=== PATIENT | male | born 1960 | race Two or more races ===

== ENCOUNTER 2017-04-15 14:07 | Emergency (ER) | payer MEDICAID, MEDICARE ==
[~2017-04-15] VITALS: Ht 172.7 cm; Wt 104.3 kg
[~2017-04-15 14:07] MED LIST: ADVAIR 100-501 EACH INH; ALBUTEROL SULF8.5 GM INH; ANTI DEPRESSION ORAL; ASPIRIN EC81 MG ORAL; ATENOLOL25 MG ORAL; ATIVAN0.5 MG ORAL; AZITHROMYCIN250 MG ORAL; IBUPROFEN600 MG ORAL; NAPROXEN500 M2 ORAL; NITROGLYCERIN0.4 MG SL; NORCO 5-325 TA1 EACH ORAL; NORCO 5-325 TA1 EACH PO; PREDNISONE20 MG ORAL; TIVICAY50 MG ORAL; TRUVADA 200 MG1 EAC1 ORAL; ZOCOR20 MG ORAL
[2017-04-15] MEDS ORDERED: PRAVASTATIN SOD20 M1 ORAL (14:27)
--- NOTE | 2017-04-15 14:37 | Emergency Room Report ---
History of Present Illness General Chief Complaint: Upper Respiratory Illness Source: Patient Present Illness HPI 56 yo male presents to ER complaining of flu-like symptoms and dry cough x1 day. Patient complains of generalized body aches during this time. Patient also complains of congestion. States he took Mucinex for relief of symptoms. Patient denies history of sick contacts. Patient reports hx of asthma treated at home as needed for Denies wheezing or use of medication. Patient reports hx of HIV. States was seen by doctor 1 month ago for labs; reports normal labs, no detectable viral load. Patient states he quit smoking 5 days ago. Patient denies chest pain, SOB, diarrhea, rash. Allergies: Coded Allergies: Crab (Verified Allergy, Unknown, 04/15/17) Uncoded Allergies: SEAFOOD (Allergy, Unknown, 04/15/17) Patient History Past Medical History: see triage record, asthma, HIV Reviewed Nursing Documentation: PMH: Agreed, PSxH: Agreed Nursing Documentation-PMH Hx Cardiac Problems: Yes - HIV(+), Heart attack in 2005 Hx Hypertension: Yes Hx Pacemaker: No Hx Asthma: Yes Hx COPD: No Hx Diabetes: No Hx Cancer: No Hx Gastrointestinal Problems: No Hx Dialysis: No Hx Neurological Problems: No - Right Carpal Tunnel Sx Hx Cerebrovascular Accident: No Hx Seizures: No Review of Systems All Other Systems: negative except mentioned in HPI Physical Exam Vital Signs Date Time Temp Pulse Resp B/P (MAP) Pulse Ox O2 Delivery O2 Flow Rate FiO2 04/15/17 14:22 98.6 115 22 157/94 94 Room Air Sp02 EP Interpretation: reviewed, normal General Appearance: no apparent distress, alert, GCS 15, non-toxic Head: normocephalic, atraumatic Eyes: bilateral eye normal inspection, bilateral eye PERRL ENT: hearing grossly normal, normal pharynx, no angioedema, normal voice, TMs + canals normal, uvula midline, pharyngeal erythema Neck: full range of motion, supple/symm/no masses Respiratory: chest non-tender, lungs clear, normal breath sounds, no accessory muscle use, no wheezing, speaking full sentences Cardiovascular #1: regular rate, rhythm Cardiovascular #2: 2+ carotid (R), 2+ carotid (L) Gastrointestinal: normal bowel sounds, non tender, soft, non-distended, no guarding, no rebound Musculoskeletal: back normal, digits/nails normal, gait/station normal, normal range of motion, non-tender Neurologic: alert, oriented x3, responsive, motor strength/tone normal, sensory intact, speech normal Skin: normal color, no rash, warm/dry, well hydrated Lymphatic: no adenopathy Medical Decision Making PA Attestation Dr. Mcintyre is my supervising Physician whom patient management has been discussed with. Diagnostic Impression: Primary Impression: Upper respiratory infection ER Course Pt presents to ED c/o flu-like symptoms. DDX considered but are not limited to influenza, viral URI, strep throat, rhinitis, sinusitis. VITAL SIGNS are WNL, patient is afebrile. ORDERS: none required at this time, diagnosis is clinical ED INTERVENTIONS: none required at this time DISCHARGE: At this time pt is stable for d/c to home. Patient is resting comfortably, in no acute distress, nontoxic appearing. -Rx given for Motrin/Ibuprofen for fever/pain. -Rx given for Promethazine-DM syrup for cough sx. -Rx given for Tamiflu for influenza. Patient to take medications as instructed Will provide with patient care instructions and any necessary prescriptions. Care plan and follow-up instructions provided. Patient instructed to follow-up with primary care provider in 3 - 5 days. Patient questions asked and answered. ER precautions given. Patient instructed to return to ER immediately for any new or worsening of symptoms including but not limited to increasing SOB, persistent fever. Last Vital Signs Date Time Temp Pulse Resp B/P (MAP) Pulse Ox O2 Delivery O2 Flow Rate FiO2 04/15/17 14:22 98.6 115 22 157/94 94 Room Air Disposition: HOME, SELF-CARE Condition: Stable Scripts Ibuprofen* (MOTRIN*) 600 Mg Tablet 600 MG ORAL Q8H Y for For Pain, #30 TAB 0 Refills Prov: Art Urban.A. 04/15/17 Oseltamivir Phosphate (Tamiflu) 75 Mg Capsule 75 MG ORAL TWICE A DAY for 5 Days, #10 CAP Prov: Art Urban P.A. 04/15/17 D-Methorphan Hb/Prometh Hcl* (PROMETHAZINE-DM SYRUP*) 118 Ml Syrup 5 ML ORAL Q6H Y for For Cough for 7 Days, #118 ML 0 Refills Prov: Art Urban.A. 04/15/17 Patient Instructions: Upper Respiratory Infection, Adult Additional Instructions: Followup with primary care provider in 3 -5 days. Take medications as directed. Continue with OTC medications as needed for symptom relief. Patient questions asked and answered. ER precautions given, patient instructed to return to ER immediately for any new or worsening of symptoms fever, chest pain, SOB. Art Urban Apr 15, 2017 14:37
[2017-04-15] MEDS ORDERED: PROMETHAZINE-D118 ML ORAL (14:48)
[2017-04-15] MEDS ORDERED: TAMIFLU75 MG ORAL (14:48)
[2017-04-15] MEDS ORDERED: IBUPROFEN600 MG ORAL (14:48)
[2017-04-15 14:51] VITALS: BP 160/93
== END 2017-04-15 16:17 | disposition home or self-care (01) ==
LOC: EMR 15:00
DX: J06.9 Acute upper respiratory infection, unspecified (principal); I10 Essential (primary) hypertension; J45.909 Unspecified asthma, uncomplicated; I25.2 Old myocardial infarction; Z91.013 Allergy to seafood
CPT/HCPCS: 99284

== ENCOUNTER 2019-06-15 13:02 | Inpatient (IN) | payer MEDICARE, MEDICAID ==
[~2019-06-15] VITALS: Ht 172.7 cm; Wt 81.6 kg
[~2019-06-15 13:02] MED LIST changes: +PRAVASTATIN SOD20 M1 ORAL; +PROMETHAZINE-D118 ML ORAL; +TAMIFLU75 MG ORAL
[2019-06-15 13:40] VITALS: BP 140/76
[2019-06-15 13:55] LABS: ANION GAP 9 mmol/L (5-15); BLOOD UREA NITROGEN 18 mg/dL (7-18); CALCIUM 8.8 MG/DL (8.5-10.1); CARBON DIOXIDE 28 MMOL/L (21-32); CHLORIDE 96 MMOL/L (98-107); CREATININE 1.3 MG/DL (0.55-1.30); POTASSIUM 3.7 MMOL/L (3.5-5.1); SODIUM 133 MMOL/L (136-145)
[2019-06-15 13:57] LABS: HEMATOCRIT 45.8 % (42.0-52.0); MEAN CORPUSCULAR VOLUME 88 FL (80-99); PLATELET COUNT 345 K/UL (150-450); RED BLOOD COUNT 5.21 M/UL (4.70-6.10); RED CELL DISTRIBUTION WIDTH 11.3 % (11.6-14.8); WHITE BLOOD COUNT 18.5 K/UL (4.8-10.8)
[2019-06-15 13:59] LABS: ALANINE AMINOTRANSFERASE 35 U/L (12-78); ALBUMIN 3.4 G/DL (3.4-5.0); ALBUMIN/GLOBULIN RATIO 0.8 (1.0-2.7); ALKALINE PHOSPHATASE 86 U/L (46-116); ASPARTATE AMINO TRANSFERASE 19 U/L (15-37)
[2019-06-15 14:04] LABS: BASOPHILS % (AUTO) 0.6 % (0.0-2.0); EOSINOPHILS % (AUTO) 0.2 % (0.0-3.0); LYMPHOCYTES % (AUTO) 12.8 % (20.0-45.0); MONOCYTES % (AUTO) 10.6 % (1.0-10.0); NEUTROPHILS % (AUTO) 75.9 % (45.0-75.0)
[2019-06-15 14:20] LABS: APPEARANCE,URINE CLOUDY; BILIRUBIN, URINE NEGATIVE (NEGATIVE); GLUCOSE, URINE (UA) NEGATIVE (NEGATIVE); KETONES,URINE 1+ (NEGATIVE); LEUKOCYTE ESTERASE ,URINE 3+ (NEGATIVE); NITRITE,URINE POSITIVE (NEGATIVE); PH,URINE 6 (4.5-8.0); PROTEIN,URINE 2+ (NEGATIVE); UROBILINOGEN,URINE 1 MG/DL (0.0-1.0)
[2019-06-15 14:32] LABS: COLOR,URINE YELLOW
[2019-06-15] MEDS ORDERED: Piperacillin/Tazobactam 3.375 GM in NS 110 ML IVPB ONE (14:45)
[2019-06-15] MEDS ORDERED: Omnipaque-300 100ml vial INJ PRN (15:15)
--- NOTE | 2019-06-15 16:00 | Diagnostic Imaging Report ---
Clinical Indication: Flank pain and inguinal pain, left testicular pain radiating to the back x1 week, low-grade fever Technique: No oral contrast utilized, per emergency room physician request IV administration nonionic contrast. Venous phase spiral acquisition obtained through the abdomen and pelvis. Multiplanar reconstructions were generated. Total dose length product 509 mGycm. CTDIvol(s) 8 mGy. Dose reduction achieved using automated exposure control Comparison: none Findings: The left kidney demonstrates heterogeneous opacification and striated nephrogram, particularly in the upper pole. There is slight stranding of the left perinephric fat and slight enlargement of the left kidney. There is a very questionable tiny punctate interpolar region calculus. The right kidney demonstrates a 12 mm upper pole cyst. The left kidney demonstrates a lower pole interpolar region cyst. There is no evidence of colonic diverticulosis or diverticulitis. There are a few somewhat prominent gas-filled small bowel loops in the left upper quadrant as well as some fluid-filled small bowel loops more distally. No sherrie wall thickening. No free or loculated intraperitoneal gas or fluid is evident. No evidence of inguinal hernia. The distal esophagus, stomach, duodenum are unremarkable. The liver demonstrates a few small scattered subcentimeter low-attenuation lesions which are too small to characterize. A a few parenchymal calcifications are seen in segment 7. The gallbladder, bile ducts and pancreas are unremarkable. The spleen is enlarged, measuring 16.7 cm long axis dimension. The adrenals are unremarkable. No pelvic mass or adenopathy. No retroperitoneal or mesenteric mass or adenopathy. The included lung bases are demonstrate a 4 mm nodule in the posterior medial left lung base, image 5 of series 8. The bones are unremarkable. Impression: Abnormal heterogeneous and somewhat striated left renal nephrogram, particularly in the upper pole with slight perinephric fat stranding. Findings are suspicious for nephritis Mild prominent gas-filled left upper quadrant small bowel bowel loops and fluid-filled mid small bowel loops, may indicate mild enteritis changes. Correlate with clinical findings 4 mm nodule at the left lung base. Recommend 12 month follow-up CT scan if there are significant risk factors for lung carcinoma, no risk factors. Splenomegaly Very questionable nonobstructive left intrarenal calculus Physical findings as noted, including bilateral renal cysts, subcentimeter liver lesions, evidence of old granulomatous disease within the liver This agrees with the preliminary interpretation provided overnight by [facility]. The CT scanner at [facility] is accredited by the [employer] and the scans are performed using protocols designed to limit radiation exposure to as low as reasonably achievable to attain images of sufficient resolution adequate for diagnostic evaluation.
[2019-06-15] MEDS ORDERED: Acyclovir 500 MG in D5W 110 ML IV ONE (16:30)
--- NOTE | 2019-06-15 16:53 | Diagnostic Imaging Report ---
Indications: Left testicular pain Technique: Grayscale and duplex images of the scrotum Comparison: Findings:The right testicle measures 3.9cm in length. It demonstrates normal echogenicity. Normal Doppler flow. A few small calcifications are seen within the right testicle and epididymis. A small cyst is seen in the right epididymal head. A 2 mm echogenic nodule is also seen in the right epididymal head. The epididymal tail is prominent. There is minimal hydrocele. The left testicle measures 3.7 cm in length. It demonstrates normal echogenicity and normal Doppler flow. The epididymal tail there is prominent. It contains a 5 mm cyst. A 6 mm cyst is seen in the epididymal head. A few small calcifications are seen in the testicle and epididymis. There is a small hydrocele.. Impression: No acute abnormality Incidental findings as noted, including bilateral epididymal and testicular parenchymal calcifications, bilateral epididymal cysts, prominent epididymal tails, and small bilateral hydroceles This agrees with the preliminary interpretation provided overnight by [facility] teleradiology service.
--- NOTE | 2019-06-15 17:05 | Emergency Room Report ---
History of Present Illness General Chief Complaint: Male Urogenital Problems Source: Medical Record Present Illness HPI 59-year-old male with history of CHF currently controlled here complaining of 1 week of left-sided testicular pain with radiation to left lower abdomen as well as left flank. Rates the pain 7 out of 10 at this time. Reports that at home he was taking ibuprofen with minimal relief. Denies any painful urination or frequency. Reports that he also has a history of BPH and takes medication. Denies any diffuse abdominal pain, nausea vomiting diarrhea. Denies any fever and chills however appears to be febrile upon arrival. Denies chest pain shortness of breath. Denies cough and congestion recent travel. Also complains of a rash on left side that is spreading to the left flank that started around the same time as a testicular pain. Reports that the rash had a tingling sensation at first and pruritic however now complains of pain at the site of rash. Denies any testicular swelling or penile discharge. Allergies: Coded Allergies: Crab (Verified Allergy, Unknown, 04/15/17) Uncoded Allergies: SEAFOOD (Allergy, Unknown, 04/15/17) COVID-19 Screening Contact w/high risk pt: No Recent Travel to affected area: No Experienced COVID-19 symptoms?: Yes COVID-19 symptoms experienced: Fever (T>100.4F or >38C) Patient History Past Medical History: see triage record Past Surgical History: none Pertinent Family History: none Immunizations: UTD Reviewed Nursing Documentation: PMH: Agreed; PSxH: Agreed Nursing Documentation-PMH Past Medical History: No History, Except For Hx Cardiac Problems: Yes - HIV(+), Heart attack in 2006 Hx Hypertension: Yes Hx Pacemaker: No Hx Asthma: Yes Hx COPD: No Hx Diabetes: No Hx Cancer: No Hx Gastrointestinal Problems: No Hx Dialysis: No Hx Neurological Problems: No - Right Carpal Tunnel Sx Hx Cerebrovascular Accident: No Hx Seizures: No Review of Systems All Other Systems: negative except mentioned in HPI Physical Exam Vital Signs Date Time Temp Pulse Resp B/P (MAP) Pulse Ox O2 Delivery O2 Flow Rate FiO2 06/15/19 13:25 100.8 76 18 140/76 (97) 99 Room Air Sp02 EP Interpretation: reviewed, normal General Appearance: no apparent distress, alert, GCS 15, non-toxic Head: normocephalic, atraumatic Eyes: bilateral eye normal inspection, bilateral eye PERRL ENT: hearing grossly normal, normal pharynx, no angioedema, normal voice Neck: full range of motion, supple/symm/no masses Respiratory: chest non-tender, lungs clear, normal breath sounds, no rhonchi, no wheezing, speaking full sentences Cardiovascular #1: regular rate, rhythm, no edema, no murmur Gastrointestinal: normal bowel sounds, non tender, soft, non-distended, no guarding, no rebound Genitourinary: no CVA tenderness, penis normal, scrotum normal Musculoskeletal: back normal, normal range of motion, gait/station normal, non- tender Neurologic: alert, motor strength/tone normal, oriented x3, sensory intact, responsive, speech normal Psychiatric: judgement/insight normal, memory normal, mood/affect normal, no suicidal/homicidal ideation Skin: rash - Vesicular rash on erythematous base on left thigh spreading to the left flank Lymphatic: no adenopathy Medical Decision Making PA Attestation All diagnoses and treatment plans were reviewed and discussed with my supervising physician Dr. Calle Diagnostic Impression: Primary Impression: Pyelonephritis Additional Impressions: Renal stone Shingles Pulmonary nodule Epididymal cyst ER Course 59-year-old male with history of CHF currently controlled here complaining of 1 week of left-sided testicular pain with radiation to left lower abdomen as well as left flank. Rates the pain 7 out of 10 at this time. Reports that at home he was taking ibuprofen with minimal relief. Denies any painful urination or frequency. Reports that he also has a history of BPH and takes medication. Denies any diffuse abdominal pain, nausea vomiting diarrhea. Denies any fever and chills however appears to be febrile upon arrival. Denies chest pain shortness of breath. Denies cough and congestion recent travel. Also complains of a rash on left side that is spreading to the left flank that started around the same time as a testicular pain. Reports that the rash had a tingling sensation at first and pruritic however now complains of pain at the site of rash. Denies any testicular swelling or penile discharge. Ddx considered but are not limited to: UTI, pyelonephritis, epididymitis, varicocele, testicular torsion, scrotal abscess, renal stone Vital signs: are WNL, pt. is febrile H&PE are most consistent with: Pyelonephritis, renal stone, shingles ORDERS: UA, urine cx, CBC, CMP, PT and PTT, lactic acid, troponin, BNP, testicular ultrasound, CT abdomen pelvis with contrast ED INTERVENTIONS: NS bolus, Zosyn, Tylenol, Acyclovir Patient was admitted with diagnosis of pyelonephritis and renal stone to Dr. Lenz under supervision of Dr.: Calle pt stable at time of admission EKG Diagnostic Results Rate: normal Rhythm: NSR ST Segments: no acute changes Other Impression No acute ST changes CT/MRI/US Diagnostic Results CT/MRI/US Diagnostic Results #1: Imaging Test Ordered: Scrotal ultrasound Impression No evidence of testicular torsion. Patent Doppler flow to both testicles. Bilateral 6 mm epididymal head cysts. Incidental note of bilateral epididymal calcifications. Incidental note of bilateral testicular microcalcifications. Tiny bilateral hydroceles. CT/MRI/US Diagnostic Results #2: Imaging Test Ordered: CT abdomen pelvis with contrast Impression Findings suggesting mild enterocolitis and/or diarrheal disease, with scattered luminal air-fluid levels throughout small bowel and colonic loops without focal wall thickening. Punctate 2 mm nonobstructive stone in the mid left kidney. No hydronephrosis or hydroureter. Subtle left perinephric and periureteral stranding, nonspecific. Recommend correlation with urinalysis to exclude UTI. Bilateral simple-appearing renal cortical cysts, largest measuring 1.6 cm in the right upper renal pole. Splenomegaly, with a craniocaudal diameter of 16 cm. The gallbladder and appendix appear normal. Liver and pancreas appear unremarkable. Stomach and GE junction appear unremarkable. 4 mm noncalcified nodule in the medial left lung base (series 8 image 5). Recommend follow-up according to Fleischner Society guidelines. The lung bases are otherwise clear. Last Vital Signs Date Time Temp Pulse Resp B/P (MAP) Pulse Ox O2 Delivery O2 Flow Rate FiO2 06/15/19 14:27 99.8 06/15/19 13:40 18 140/76 99 Room Air 06/15/19 13:25 76 Disposition: ADMITTED INPATIENT Condition: Stable Referrals: Pedro Chahal MD (PCP) Elijah Mendez Jun 15, 2019 17:05
[2019-06-15 17:36] VITALS: BP 126/78
[2019-06-15] MEDS ORDERED: BIKTARVY 50-201 EACH PO (18:56)
[2019-06-15 20:44] VITALS: BP 145/86
[2019-06-16] VITALS: BP 144/87
[2019-06-16] MEDS: cefTRIAXone 1 GM in D5W 55 ML IVPB SCH ×2 (02:35→20:40)
[2019-06-16 04:00] VITALS: BP 150/89
[2019-06-16 06:38] LABS: BASOPHILS % (AUTO) 0.5 % (0.0-2.0); EOSINOPHILS % (AUTO) 0.6 % (0.0-3.0); HEMATOCRIT 44.9 % (42.0-52.0); HEMOGLOBIN 15.8 G/DL (14.2-18.0); LYMPHOCYTES % (AUTO) 10.8 % (20.0-45.0); MEAN CORPUSCULAR VOLUME 88 FL (80-99); MONOCYTES % (AUTO) 10.6 % (1.0-10.0); NEUTROPHILS % (AUTO) 77.5 % (45.0-75.0); PLATELET COUNT 312 K/UL (150-450); RED BLOOD COUNT 5.11 M/UL (4.70-6.10); RED CELL DISTRIBUTION WIDTH 10.9 % (11.6-14.8); WHITE BLOOD COUNT 15.6 K/UL (4.8-10.8)
[2019-06-16] MEDS ORDERED: Nitroglycerin Subl 0.4mg tab SL PRN (06:45)
[2019-06-16] MEDS ORDERED: Albuterol 90mcg Inhaler 8gm INH SCH (06:45)
[2019-06-16] MEDS ORDERED: Albuterol ud Inhalation HHN PRN (07:15)
[2019-06-16 07:35] LABS: ALANINE AMINOTRANSFERASE 29 U/L (12-78); ALBUMIN 3.1 G/DL (3.4-5.0); ALBUMIN/GLOBULIN RATIO 0.7 (1.0-2.7); ALKALINE PHOSPHATASE 88 U/L (46-116); ANION GAP 10 mmol/L (5-15); ASPARTATE AMINO TRANSFERASE 20 U/L (15-37); BILIRUBIN,TOTAL 1.1 MG/DL (0.2-1.0); BLOOD UREA NITROGEN 19 mg/dL (7-18); CALCIUM 8.4 MG/DL (8.5-10.1); CARBON DIOXIDE 27 MMOL/L (21-32); CHLORIDE 97 MMOL/L (98-107); CREATININE 1.1 MG/DL (0.55-1.30); POTASSIUM 3.5 MMOL/L (3.5-5.1); SODIUM 133 MMOL/L (136-145)
[2019-06-16 07:36] LABS: BILIRUBIN,DIRECT 0.6 MG/DL (0.0-0.3)
[2019-06-16 08:00] VITALS: BP 133/91
[2019-06-16] MEDS: Aspirin EC 81mg tab ORAL SCH (09:05)
[2019-06-16] MEDS: LORazepam 0.5mg tab ORAL SCH ×2 (09:05→17:34)
[2019-06-16] MEDS: Atenolol 25mg tab ORAL SCH (09:05)
--- NOTE | 2019-06-16 09:35 | Consultation ---
History of Present Illness General Chief Complaint: Male Urogenital Problems Present Illness Allergies: Coded Allergies: Crab (Verified Allergy, Unknown, 04/15/17) Uncoded Allergies: SEAFOOD (Allergy, Unknown, 04/15/17) Medication History Scheduled Albuterol Sulfate* (Albuterol Sulfate Mdi*), 2 PUFF INH Q3H, (Reported) Aspirin Ec* (Aspirin Ec*), 81 MG ORAL DAILY, (Reported) Atenolol* (Tenormin*), 25 MG ORAL DAILY, (Reported) Azithromycin* (Zithromax*), 250 MG ORAL DAILY Bictegrav/Emtricit/Tenofov Ala (Biktarvy 50-200-25 mg Tablet), 1 EACH PO DAILY, (Reported) Fluticasone/Salmeterol (Advair 100-50 Diskus), 1 PUFF INH EVERY 12 HOURS, ( Reported) Lorazepam* (Ativan*), 0.5 MG ORAL BID, (Reported) Naproxen* (Naproxen*), 500 MG ORAL TWICE A DAY, (Reported) Oseltamivir Phosphate (Tamiflu), 75 MG ORAL TWICE A DAY Pravastatin Sod* (Pravastatin Sod*), 20 MG ORAL BEDTIME, (Reported) Prednisone* (Prednisone*), 60 MG ORAL DAILY Simvastatin (Zocor), 20 MG ORAL BEDTIME, (Reported) [Anti Depression], 20 ORAL DAILY, (Reported) Scheduled PRN D-Methorphan Hb/Prometh Hcl* (Promethazine-Dm Syrup*), 5 ML ORAL Q6H PRN for For Cough Miscellaneous Medications Nitroglycerin (Nitroglycerin), 0.4 MG SL, (Reported) Discontinued Medications Dolutegravir Sodium (Tivicay), 50 MG ORAL DAILY, (Reported) Discontinued Reason: Pt stopped taking med Emtricitabine/Tenofovir 200-300MG* (Truvada 200-300MG*), 1 TAB ORAL DAILY, ( Reported) Discontinued Reason: Pt stopped taking med Hydrocodone Bit/Acetaminophen 5-325* ([place] 5-325*), 1 TAB ORAL Q6H PRN for For Pain Discontinued Reason: Pt stopped taking med Ibuprofen (Motrin), 600 MG ORAL Q8H PRN for For Pain Discontinued Reason: Pt stopped taking med Ibuprofen (Motrin), 600 MG ORAL Q8H PRN for For Pain Discontinued Reason: Pt stopped taking med Patient History Healthcare decision maker N Resuscitation status Full Code Advanced Directive on File No Physical Exam Last 24 Hour Vital Signs Date Time Temp Pulse Resp B/P (MAP) Pulse Ox O2 Delivery O2 Flow Rate FiO2 06/16/19 09:05 81 133/91 06/16/19 08:00 98.4 81 20 133/91 (105) 100 06/16/19 04:00 99.0 85 150/89 (109) 06/16/19 00:00 100.4 88 144/87 (106) 06/15/19 22:53 100.4 06/15/19 22:29 Room Air 06/15/19 20:44 102.2 94 18 145/86 (105) 96 06/15/19 19:00 99.1 81 19 126/78 95 Room Air 06/15/19 17:36 99.1 81 19 126/78 95 Room Air 06/15/19 14:27 99.8 06/15/19 13:40 100.8 18 140/76 99 Room Air 06/15/19 13:25 100.8 76 18 140/76 (97) 99 Room Air Intake and Output 06/15/19 06/16/19 19:00 07:00 Intake Total 1600 ml Balance 1600 ml Intake Oral 1600 ml # Voids 1 2 Laboratory Tests Test 06/15/19 13:30 06/15/19 14:00 06/16/19 05:25 White Blood Count 18.5 K/UL (4.8-10.8) H 15.6 K/UL (4.8-10.8) H Red Blood Count 5.21 M/UL (4.70-6.10) 5.11 M/UL (4.70-6.10) Hemoglobin 16.0 G/DL (14.2-18.0) 15.8 G/DL (14.2-18.0) Hematocrit 45.8 % (42.0-52.0) 44.9 % (42.0-52.0) Mean Corpuscular Volume 88 FL (80-99) 88 FL (80-99) Mean Corpuscular Hemoglobin 30.7 PG (27.0-31.0) 30.9 PG (27.0-31.0) Mean Corpuscular Hemoglobin Concent 34.9 G/DL (32.0-36.0) 35.2 G/DL (32.0-36.0) Red Cell Distribution Width 11.3 % (11.6-14.8) L 10.9 % (11.6-14.8) L Platelet Count 345 K/UL (150-450) 312 K/UL (150-450) Mean Platelet Volume 6.1 FL (6.5-10.1) L 6.2 FL (6.5-10.1) L Neutrophils (%) (Auto) 75.9 % (45.0-75.0) H 77.5 % (45.0-75.0) H Lymphocytes (%) (Auto) 12.8 % (20.0-45.0) L 10.8 % (20.0-45.0) L Monocytes (%) (Auto) 10.6 % (1.0-10.0) H 10.6 % (1.0-10.0) H Eosinophils (%) (Auto) 0.2 % (0.0-3.0) 0.6 % (0.0-3.0) Basophils (%) (Auto) 0.6 % (0.0-2.0) 0.5 % (0.0-2.0) Prothrombin Time 10.7 SEC (9.30-11.50) Prothromb Time International Ratio 1.0 (0.9-1.1) Activated Partial Thromboplast Time 32 SEC (23-33) Sodium Level 133 MMOL/L (136-145) L 133 MMOL/L (136-145) L Potassium Level 3.7 MMOL/L (3.5-5.1) 3.5 MMOL/L (3.5-5.1) Chloride Level 96 MMOL/L (98-107) L 97 MMOL/L (98-107) L Carbon Dioxide Level 28 MMOL/L (21-32) 27 MMOL/L (21-32) Anion Gap 9 mmol/L (5-15) 10 mmol/L (5-15) Blood Urea Nitrogen 18 mg/dL (7-18) 19 mg/dL (7-18) H Creatinine 1.3 MG/DL (0.55-1.30) 1.1 MG/DL (0.55-1.30) Estimat Glomerular Filtration Rate 56.7 mL/min (>60) > 60 mL/min (>60) Glucose Level 92 MG/DL (74-106) 94 MG/DL (74-106) Lactic Acid Level 1.00 mmol/L (0.4-2.0) Calcium Level 8.8 MG/DL (8.5-10.1) 8.4 MG/DL (8.5-10.1) L Total Bilirubin 1.0 MG/DL (0.2-1.0) 1.1 MG/DL (0.2-1.0) H Aspartate Amino Transf (AST/SGOT) 19 U/L (15-37) 20 U/L (15-37) Alanine Aminotransferase (ALT/SGPT) 35 U/L (12-78) 29 U/L (12-78) Alkaline Phosphatase 86 U/L (46-116) 88 U/L (46-116) Troponin I 0.000 ng/mL (0.000-0.056) Pro-B-Type Natriuretic Peptide 179 pg/mL (0-125) H Total Protein 7.7 G/DL (6.4-8.2) 7.3 G/DL (6.4-8.2) Albumin 3.4 G/DL (3.4-5.0) 3.1 G/DL (3.4-5.0) L Globulin 4.3 g/dL 4.2 g/dL Albumin/Globulin Ratio 0.8 (1.0-2.7) L 0.7 (1.0-2.7) L Urine Color Yellow Urine Appearance Cloudy Urine pH 6 (4.5-8.0) Urine Specific [place] 1.010 (1.005-1.035) Urine Protein 2+ (NEGATIVE) H Urine Glucose (UA) Negative (NEGATIVE) Urine Ketones 1+ (NEGATIVE) H Urine Blood 5+ (NEGATIVE) H Urine Nitrite Positive (NEGATIVE) H Urine Bilirubin Negative (NEGATIVE) Urine Urobilinogen 1 MG/DL (0.0-1.0) H Urine Leukocyte Esterase 3+ (NEGATIVE) H Urine RBC Tntc /HPF (0 - 0) H Urine WBC Tntc /HPF (0 - 0) H Urine Squamous Epithelial Cells None /LPF (NONE/OCC) Urine Bacteria Many /HPF (NONE) H Direct Bilirubin 0.6 MG/DL (0.0-0.3) H Microbiology Date/Time Source Procedure Growth Status 06/15/19 14:00 Urine,Catheterized Urine Culture - Preliminary Gram Negative Bacillus 1 Resulted Height (Feet): 5 Height (Inches): 8.00 Weight (Pounds): 180 Medications Current Medications Medications (Trade) Dose Ordered Sig/Jaelyn Route PRN Reason Start Time Stop Time Status Last Admin Dose Admin Acetaminophen (Tylenol) 650 mg Q4H PRN ORAL Mild Pain (Pain Scale 1-3) 06/15/19 21:45 07/15/19 21:44 06/16/19 06:34 Albuterol Sulfate (Proventil) 2.5 mg Q3H PRN HHN sob 06/16/19 07:15 06/21/19 07:14 Aspirin (Ecotrin) 81 mg DAILY ORAL 06/16/19 09:00 07/31/19 08:59 06/16/19 09:05 Atenolol (Tenormin) 25 mg DAILY ORAL 06/16/19 09:00 07/16/19 08:59 06/16/19 09:05 Ceftriaxone Sodium 1 gm/ Dextrose 55 ml @ 110 mls/hr Q24H IVPB 06/15/19 21:15 06/22/19 21:14 06/16/19 02:35 Iohexol (OMNIPAQUE-300 100ml) 100 ml NOW PRN INJ Radiology Procedure 06/15/19 15:15 06/17/19 15:04 Lorazepam (Ativan) 0.5 mg BID ORAL 06/16/19 09:00 06/23/19 08:59 06/16/19 09:05 Nitroglycerin (Ntg) 0.4 mg PRN PRN SL CHEST PAIN 06/16/19 06:45 07/16/19 06:44 Ondansetron HCl (Zofran) 4 mg Q6H PRN IVP Nausea & Vomiting 06/15/19 21:45 07/15/19 21:44 Pravastatin Sodium (Pravachol) 20 mg BEDTIME ORAL 06/16/19 21:00 07/16/19 20:59 Salmeterol Xinafoate/ Fluticasone (Advair 100/50 Diskus) 1 puffs EVERY 12 HOURS INH 06/16/19 09:00 09/14/19 08:59 Assessment/Plan Assessment/Plan: Hematology Consultation REQ : Timo Lenz C:Leukocytosis DOS: 06/16/2019 ID 59-year-old male with history of CHF currently controlled here complaining of 1 week of left-sided testicular pain with radiation to left lower abdomen as well as left flank. Rates the pain 7 out of 10 at this time. Reports that at home he was taking ibuprofen with minimal relief. Denies any painful urination or frequency. Reports that he also has a history of BPH and takes medication. Denies any diffuse abdominal pain, nausea vomiting diarrhea. Denies any fever and chills however appears to be febrile upon arrival. Denies chest pain shortness of breath. Denies cough and congestion recent travel. Also complains of a rash on left side that is spreading to the left flank that started around the same time as a testicular pain. Reports that the rash had a tingling sensation at first and pruritic however now complains of pain at the site of rash. Denies any testicular swelling or penile discharge. He was noted to have a elevated wbc and currently at 18->15, heme was consulted for further evaluation, id consulted as well. Allergies: Crab (Verified Allergy, Unknown, 04/15/17) SEAFOOD (Allergy, Unknown, 04/15/17) COVID-19 Screening Contact w/high risk pt: No Recent Travel to affected area: No Experienced COVID-19 symptoms?: Yes Patient History Past Medical History: see triage record Past Surgical History: none Pertinent Family History: none Immunizations: UTD Reviewed Nursing Documentation: PMH: Agreed; PSxH: Agreed Nursing Documentation-PMH Past Medical History: No History, Except For Hx Cardiac Problems: Yes - HIV(+), Heart attack in 2006 Hx Hypertension: Yes Hx Pacemaker: No Hx Asthma: Yes Hx COPD: No Hx Diabetes: No Hx Cancer: No Hx Gastrointestinal Problems: No Hx Dialysis: No Hx Neurological Problems: No - Right Carpal Tunnel Sx Hx Cerebrovascular Accident: No Hx Seizures: No Social hx: single, no kids, used t work in security, +++tobacco use, meth use in the past, but not at this time, no etoh/alcohol use ROS: Constitutional: No fever, no chills, no night sweats, no fatigue Skin: No rashes, lumps, itchiness, dryness HEENT: No LAURENT, ear ache, visual changes, double vision, nosebleeds Breasts: No lumps, pain, discharge Pulmonary: No cough, sputum, shortness of breath, coughing up blood Cardiovascular: No chest pain, tightness, palpitations, syncope, PND GI: No nausea, vomiting, diarrhea, melena, hematochezia, change in appetite, : No dysuria, frequency, urgency, urinary incontinence, foamy urine Musculoskeletal: No joint swelling or muscle pain, trauma, back pain Neurologic: No dizziness, fainting, seizures, changes in smell or taste Psychiatric: No nervousness, stress, or depression, anxiety, hallucinations Endocrine: No weight change, heat or cold intolerance, tremor, insomnia Physical Exam: Vitals: reviewed General: NAD HEENT: nc, at Neck: supple Chest: clear breath sounds bilaterally Cardiovascular: RRR, no s3, s4 Abdomen: soft, nontender, nd Extremities: no cce, normal range of motion Neuro: alert and oriented Skin: rash - Vesicular rash on erythematous base on left thigh spreading to the left flank Labs: noted Imaging: reviewed Assessment and Recs # Leukocytosis/elevated white blood cell count, unspecified likely related to underlying stress reaction, smoking v more likely infection, is due to pyelonephroitis/hiv --> have reviewed peripheral smear and bandemia/neutrophilia noted --> continue antibiotics if they have been started by ID team --> monitor for resolution => on abx CTX # Pyelonephritis --> on abx as per id --> monitor for resolution # Shingles on the left leg and BACK/Flank++ --> consider valacyclovir/acyclovir per id --> contact iso # Renal stone -> on ivf, per uro # Pulmonary nodule # Epididymal cyst # CHF per cards The timing of this note does not necessarily reflect the time of the patient was seen. Greatly appreciate consultation. Yoan Monroe MD Jun 16, 2019 09:35
[2019-06-16] MEDS: Wixela 100/50 Inhaler - 60 dose INH SCH ×2 (10:01→20:03)
[2019-06-16 12:00] VITALS: BP 142/92
[2019-06-16] MEDS: valACYclovir HCL 500mg tab ORAL SCH ×2 (14:08→20:40)
[2019-06-16 16:00] VITALS: BP 117/70
--- NOTE | 2019-06-16 16:15 | Consultation ---
History of Present Illness General Date patient seen: Jun 16, 2019 Chief Complaint: Present Illness Allergies: Coded Allergies: Crab (Verified Allergy, Unknown, 04/15/17) Uncoded Allergies: SEAFOOD (Allergy, Unknown, 04/15/17) Medication History Scheduled Albuterol Sulfate* (Albuterol Sulfate Mdi*), 2 PUFF INH Q3H, (Reported) Aspirin Ec* (Aspirin Ec*), 81 MG ORAL DAILY, (Reported) Atenolol* (Tenormin*), 25 MG ORAL DAILY, (Reported) Azithromycin* (Zithromax*), 250 MG ORAL DAILY Bictegrav/Emtricit/Tenofov Ala (Biktarvy 50-200-25 mg Tablet), 1 EACH PO DAILY, (Reported) Fluticasone/Salmeterol (Advair 100-50 Diskus), 1 PUFF INH EVERY 12 HOURS, ( Reported) Lorazepam* (Ativan*), 0.5 MG ORAL BID, (Reported) Naproxen* (Naproxen*), 500 MG ORAL TWICE A DAY, (Reported) Oseltamivir Phosphate (Tamiflu), 75 MG ORAL TWICE A DAY Pravastatin Sod* (Pravastatin Sod*), 20 MG ORAL BEDTIME, (Reported) Prednisone* (Prednisone*), 60 MG ORAL DAILY Simvastatin (Zocor), 20 MG ORAL BEDTIME, (Reported) [Anti Depression], 20 ORAL DAILY, (Reported) Scheduled PRN D-Methorphan Hb/Prometh Hcl* (Promethazine-Dm Syrup*), 5 ML ORAL Q6H PRN for For Cough Miscellaneous Medications Nitroglycerin (Nitroglycerin), 0.4 MG SL, (Reported) Discontinued Medications Dolutegravir Sodium (Tivicay), 50 MG ORAL DAILY, (Reported) Discontinued Reason: Pt stopped taking med Emtricitabine/Tenofovir 200-300MG* ([place] 200-300MG*), 1 TAB ORAL DAILY, ( Reported) Discontinued Reason: Pt stopped taking med Hydrocodone Bit/Acetaminophen 5-325* ([place] 5-325*), 1 TAB ORAL Q6H PRN for For Pain Discontinued Reason: Pt stopped taking med Ibuprofen (Motrin), 600 MG ORAL Q8H PRN for For Pain Discontinued Reason: Pt stopped taking med Ibuprofen (Motrin), 600 MG ORAL Q8H PRN for For Pain Discontinued Reason: Pt stopped taking med Patient History Healthcare decision maker N Resuscitation status Full Code Advanced Directive on File No Physical Exam Last 24 Hour Vital Signs Date Time Temp Pulse Resp B/P (MAP) Pulse Ox O2 Delivery O2 Flow Rate FiO2 06/16/19 12:00 99.3 79 20 142/92 (109) 97 06/16/19 09:55 79 18 99 Room Air 21 06/16/19 09:55 75 16 98 Room Air 21 06/16/19 09:32 Room Air 06/16/19 09:05 81 133/91 06/16/19 08:00 98.4 81 20 133/91 (105) 100 06/16/19 04:00 99.0 85 150/89 (109) 06/16/19 00:00 100.4 88 144/87 (106) 06/15/19 22:53 100.4 06/15/19 22:29 Room Air 06/15/19 20:44 102.2 94 18 145/86 (105) 96 06/15/19 19:00 99.1 81 19 126/78 95 Room Air 06/15/19 17:36 99.1 81 19 126/78 95 Room Air Intake and Output 06/15/19 06/16/19 19:00 07:00 Intake Total 1600 ml Balance 1600 ml Intake Oral 1600 ml # Voids 1 2 Laboratory Tests Test 06/16/19 05:25 White Blood Count 15.6 K/UL (4.8-10.8) H Red Blood Count 5.11 M/UL (4.70-6.10) Hemoglobin 15.8 G/DL (14.2-18.0) Hematocrit 44.9 % (42.0-52.0) Mean Corpuscular Volume 88 FL (80-99) Mean Corpuscular Hemoglobin 30.9 PG (27.0-31.0) Mean Corpuscular Hemoglobin Concent 35.2 G/DL (32.0-36.0) Red Cell Distribution Width 10.9 % (11.6-14.8) L Platelet Count 312 K/UL (150-450) Mean Platelet Volume 6.2 FL (6.5-10.1) L Neutrophils (%) (Auto) 77.5 % (45.0-75.0) H Lymphocytes (%) (Auto) 10.8 % (20.0-45.0) L Monocytes (%) (Auto) 10.6 % (1.0-10.0) H Eosinophils (%) (Auto) 0.6 % (0.0-3.0) Basophils (%) (Auto) 0.5 % (0.0-2.0) Sodium Level 133 MMOL/L (136-145) L Potassium Level 3.5 MMOL/L (3.5-5.1) Chloride Level 97 MMOL/L (98-107) L Carbon Dioxide Level 27 MMOL/L (21-32) Anion Gap 10 mmol/L (5-15) Blood Urea Nitrogen 19 mg/dL (7-18) H Creatinine 1.1 MG/DL (0.55-1.30) Estimat Glomerular Filtration Rate > 60 mL/min (>60) Glucose Level 94 MG/DL (74-106) Calcium Level 8.4 MG/DL (8.5-10.1) L Total Bilirubin 1.1 MG/DL (0.2-1.0) H Direct Bilirubin 0.6 MG/DL (0.0-0.3) H Aspartate Amino Transf (AST/SGOT) 20 U/L (15-37) Alanine Aminotransferase (ALT/SGPT) 29 U/L (12-78) Alkaline Phosphatase 88 U/L (46-116) Total Protein 7.3 G/DL (6.4-8.2) Albumin 3.1 G/DL (3.4-5.0) L Globulin 4.2 g/dL Albumin/Globulin Ratio 0.7 (1.0-2.7) L Height (Feet): 5 Height (Inches): 8.00 Weight (Pounds): 180 Medications Current Medications Medications (Trade) Dose Ordered Sig/Jaelyn Route PRN Reason Start Time Stop Time Status Last Admin Dose Admin Acetaminophen (Tylenol) 650 mg Q4H PRN ORAL Mild Pain (Pain Scale 1-3) 06/15/19 21:45 07/15/19 21:44 06/16/19 06:34 Albuterol Sulfate (Proventil) 2.5 mg Q3H PRN HHN sob 06/16/19 07:15 06/21/19 07:14 Aspirin (Ecotrin) 81 mg DAILY ORAL 06/16/19 09:00 07/31/19 08:59 06/16/19 09:05 Atenolol (Tenormin) 25 mg DAILY ORAL 06/16/19 09:00 07/16/19 08:59 06/16/19 09:05 Ceftriaxone Sodium 1 gm/ Dextrose 55 ml @ 110 mls/hr Q24H IVPB 06/15/19 21:15 06/22/19 21:14 06/16/19 02:35 Iohexol (OMNIPAQUE-300 100ml) 100 ml NOW PRN INJ Radiology Procedure 06/15/19 15:15 06/17/19 15:04 Lorazepam (Ativan) 0.5 mg BID ORAL 06/16/19 09:00 06/23/19 08:59 06/16/19 09:05 Nitroglycerin (Ntg) 0.4 mg PRN PRN SL CHEST PAIN 06/16/19 06:45 07/16/19 06:44 Ondansetron HCl (Zofran) 4 mg Q6H PRN IVP Nausea & Vomiting 06/15/19 21:45 07/15/19 21:44 Pravastatin Sodium (Pravachol) 20 mg BEDTIME ORAL 06/16/19 21:00 07/16/19 20:59 Salmeterol Xinafoate/ Fluticasone (Advair 100/50 Diskus) 1 puffs EVERY 12 HOURS INH 06/16/19 09:00 09/14/19 08:59 06/16/19 10:01 Valacyclovir HCl (Valtrex) 1,000 mg EVERY 8 HOURS ORAL 06/16/19 14:00 07/16/19 13:59 06/16/19 14:08 Assessment/Plan Assessment/Plan: (1) Left sided flank pain (2) Pyelonephritis (3) Herpes Zoster (4) Post Herpetic Neuralgia seen dictated Ned Cruz Jun 16, 2019 16:14
--- NOTE | 2019-06-16 17:30 | Consultation ---
DATE OF CONSULTATION: 06/16/2019 INFECTIOUS DISEASE CONSULTATION CONSULTING PHYSICIAN: Suraj Elizalde MD. PRIMARY ATTENDING PHYSICIAN: Timo Irving MD. REASON FOR CONSULTATION: Pyelonephritis and herpes zoster. HISTORY OF PRESENT ILLNESS: This is a 59-year-old male admitted yesterday from home complaining of pain in the left flank radiating to the left testicle and developed rash in the lower back with radiation to the left groin. Rash is erythematous base and vesicular, had fever up to 102.2 in the hospital, leukocytosis of 18,500. PAST MEDICAL HISTORY: HIV taking Biktarvy, CAD ALLERGIES: No known drug allergy, but he is allergic to crab and seafood. MEDICATIONS: Getting aspirin, atenolol, Advair Diskus, lorazepam, albuterol, Zofran, Tylenol, and ceftriaxone. Got a dose of acyclovir IV and Zosyn in ER. SOCIAL HISTORY: Smokes weed. He was former smoker, quit many years ago. Denies alcohol or drug abuse. REVIEW OF SYSTEMS: Fever, pain that is decreased in the back, rash that is itching. PHYSICAL EXAMINATION: VITAL SIGNS: Current temperature 98.4, pulse 75, blood pressure 133/91. GENERAL APPEARANCE: No acute distress. Well developed. HEAD AND NECK: Poor dentition. No oral lesion. HEART: Normal rate. LUNGS: Clear. ABDOMEN: Soft, nontender. EXTREMITIES: No edema. SKIN: Rash in sacral area with distribution to the left upper thigh with erythematous base and vesicular. LABORATORY AND DIAGNOSTIC DATA: WBC today is 15.6, hemoglobin 15.8, hematocrit 44.9, platelet is 312,000. Sodium 133, potassium 3.5, chloride 97, bicarb 27, BUN 19, creatinine 1.1, bilirubin 1.1. CT scan of the abdomen and pelvis showed splenomegaly and left kidney nephritis. Testicular ultrasound was negative. IMPRESSION: Sepsis, fever, leukocytosis. He has Pyelonephritis, urine culture growing gram-negative benny, herpes zoster of the skin,HIV and splenomegaly. RECOMMENDATIONS: We will continue ceftriaxone. We will start on p.o. Valacyclovir. We will follow up the culture. At the end of my exam, I thank Dr. Irving for involving me in the care of this patient. Suraj Elizalde M.D. DR: JACQUELINE JOB#: [id number] CC: JORDANA
--- NOTE | 2019-06-16 18:44 | Consultation ---
DATE OF CONSULTATION: 06/16/2019 PAIN MANAGEMENT CONSULTATION CONSULTING PHYSICIAN: Thang Love MD REFERRING PHYSICIAN: José Miguel Henry DO PHYSICIAN REPORT PROGRAMMER: GUSTABO Marcos CHIEF COMPLAINT: Left-sided flank pain. HISTORY OF PRESENT ILLNESS: This is a 59-year-old male who is being seen on the Med/Surg floor of [facility] for initial pain management consultation. The patient was admitted under the care of Dr. Henry with complaints of left-sided flank pain, found to have pyelonephritis and herpes zoster, rating his pain at 5/10, describing pain as a sharp pain, increased with movement and reduced with medication. At this time, he is on Tylenol 650 mg tablet every 4 hours as needed for mild pain, which has been relieving his pain to a tolerable level. He is comfortable at this time. We were consulted so that the patient would have adequate pain control while here in the hospital. PAST MEDICAL HISTORY: HIV, heart attack, hypertension, asthma. PAST SURGICAL HISTORY: Right carpal tunnel surgery. SOCIAL HISTORY: Smokes tobacco. 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 Denies alcohol abuse. ALLERGIES: No known drug allergies. MEDICATIONS: Albuterol, aspirin, Tenormin, Biktarvy, Advair, Ativan, naproxen, Tamiflu, paroxetine, prednisone, and Zocor. REVIEW OF SYSTEMS: Denies rash, fever, chills, sweating, dizziness, drowsiness, sore throat, or change in weight. No shortness of breath, chest pain, palpitations, or cough. No nausea, vomiting, diarrhea, or blood in the stool. He is complaining of left-sided flank pain. PHYSICAL EXAMINATION: GENERAL: Alert, awake, and oriented. VITAL SIGNS: Blood pressure 142/92, heart rate 79, oxygen saturation 97%, respiratory rate 20, temperature 98.2 degrees Fahrenheit. HEENT: PERRLA. NECK: Range of motion is full in all directions. No tenderness to paracervical muscles. No adenopathy. LUNGS: Decreased breath sounds bilaterally. HEART: Regular. ABDOMEN: Soft and nontender. BACK: Vesicular rash on erythematous base on the left flank. EXTREMITIES: Upper and lower extremity range of motion is full in all directions. No cyanosis. No clubbing. Sensory is intact. Reflexes are not obtainable. No adenopathy. ASSESSMENT AND PLAN: This is a 59-year-old male with left-sided flank pain, pyelonephritis, herpes zoster, postherpetic neuralgia. The patient will be continued on acetaminophen and will be started on Neurontin 300 mg tablet three times a day. The patient was discussed with Dr. Love and Dr. Love concurred. We will follow the patient. Thang Love M.D. GUSTABO Marcos DR: Avis JOB#: [id number] CC:
[2019-06-16 20:00] VITALS: BP 146/91
--- NOTE | 2019-06-16 22:30 | History and Physical Report ---
DATE OF ADMISSION: 06/15/2019 HISTORY OF PRESENT ILLNESS: The patient comes with acute pyelonephritis. The patient also has a history of CHF, presented with left-sided flank pain, dysuria, and left-sided rash. The rash is consistent with shingles. The patient was febrile. Zosyn and acyclovir was given in the ER. Rash was also in the left medial thigh to the left flank, but did not cross the midline and it was dry and scabbed over, apparently present for according to the patient for about one week. The patient's pain was radiating to left lower abdomen as well as left flank. The patient was also taking ibuprofen, it was not helping. The patient also had dysuria. The patient denies any or chills. Denies shortness of breath and chest pain as well. The patient also complained of rash on the left side that was extending to the left flank. PAST MEDICAL HISTORY: Significant for hypertension, history of HI, history of immunodeficiency, history of asthma, HIV, hyperlipidemia, as well as anxiety. PAST SURGICAL HISTORY: None. MEDICATIONS: Atenolol, lorazepam, Pravachol, simvastatin. ALLERGIES: Allergies to crab and sea food. SOCIAL HISTORY: The patient smokes marijuana. He was former smoker as well. Denies alcohol abuse. FAMILY HISTORY: Noncontributory. REVIEW OF SYSTEMS: HEENT: Denies headaches. RESPIRATORY: Denies shortness of breath. Denies cough. CARDIOVASCULAR: Denies chest pain. Denies orthopnea. GASTROINTESTINAL: Denies nausea, vomiting, or diarrhea. Does have dysuria. Did have left-sided flank pain and left-sided upper thigh pain. CENTRAL NERVOUS SYSTEM: Denies changes in speech pattern. PHYSICAL EXAMINATION: VITAL SIGNS: Temperature 102.1, pulse 98, blood pressure 117/70. HEENT: PERRLA. NECK: Supple. No lymphadenopathy. CHEST: Clear to auscultation. CARDIOVASCULAR: Regular rate and rhythm. The patient does have left-sided flank rash and scabbed over that is dry. CENTRAL NERVOUS SYSTEM: Able to move extremities. NEUROLOGIC: No focal neurological exam. LABORATORY DATA: WBC of 18.5, hemoglobin of 16, and platelets of 345. Sodium 133, potassium 3.7, BUN of 18, creatinine 1.3, glucose of 92. ASSESSMENT AND PLAN: Basically presented with pyelonephritis, urinary tract infection, recent history shingles. I have consulted Dr. Roberts, Dr. Suraj Elizalde, Dr. Love for pain management as well as for the management of the dysuria as well to help with the management and treatment of shingles. We will monitor the patient very closely. Timo Irving M.D. DR: Kaila JOB#: [id number] CC:
[2019-06-17] VITALS: BP 137/87
[2019-06-17 04:00] VITALS: BP 147/93
[2019-06-17] MEDS: valACYclovir HCL 500mg tab ORAL SCH ×3 (05:29→21:09)
[2019-06-17 08:00] VITALS: BP 145/92
[2019-06-17] MEDS: Wixela 100/50 Inhaler - 60 dose INH SCH ×2 (09:05→21:00)
[2019-06-17] MEDS: LORazepam 0.5mg tab ORAL SCH ×2 (09:16→18:21)
[2019-06-17] MEDS: Aspirin EC 81mg tab ORAL SCH (09:17)
[2019-06-17] MEDS: Atenolol 25mg tab ORAL SCH (09:17)
--- NOTE | 2019-06-17 11:56 | Infectious Diseases Prog Note ---
Assessment/Plan Assessment/Plan IMPRESSION: Sepsis,with fever, leukocytosis. Pyelonephritis, urine culture E.coli Herpes zoster of the skin, splenomegaly. RECOMMENDATIONS: We will continue ceftriaxone & p.o. Valacyclovir. Subjective ROS Limited/Unobtainable: No Constitutional: Reports: other - no fever since morning Respiratory: Reports: no symptoms Gastrointestinal/Abdominal: Reports: no symptoms Genitourinary: Reports: no symptoms Skin: Reports: rash Musculoskeletal: Reports: pain, other - left flank Allergies: Coded Allergies: Crab (Verified Allergy, Unknown, 04/15/17) Uncoded Allergies: SEAFOOD (Allergy, Unknown, 04/15/17) Objective Vital Signs Last 24 Hour Vital Signs Date Time Temp Pulse Resp B/P (MAP) Pulse Ox O2 Delivery O2 Flow Rate FiO2 06/17/19 09:17 78 145/92 06/17/19 09:06 78 18 97 Room Air 21 06/17/19 09:05 78 18 97 Room Air 21 06/17/19 08:00 97.6 76 20 145/92 (109) 96 06/17/19 05:58 99.3 06/17/19 04:00 99.3 89 18 147/93 (111) 98 06/17/19 00:00 98.7 86 18 137/87 (104) 98 06/16/19 21:57 Room Air 06/16/19 20:04 78 18 99 Room Air 21 06/16/19 20:03 77 18 98 Room Air 21 06/16/19 20:00 100.6 101 18 146/91 (109) 98 06/16/19 16:45 101.2 06/16/19 16:00 102.1 98 20 117/70 (86) 98 06/16/19 12:00 99.3 79 20 142/92 (109) 97 Height (Feet): 5 Height (Inches): 8.00 Weight (Pounds): 180 General Appearance: no acute distress HEENT: mucous membranes moist Respiratory/Chest: lungs clear Cardiovascular: normal rate Abdomen: soft, non tender Extremities: no edema Skin: rash, other - vesicular rash Neurologic/Psychiatric: alert, oriented x 3, responsive Microbiology Date/Time Source Procedure Growth Status 06/15/19 19:50 Blood Blood Culture - Preliminary NO GROWTH AFTER 24 HOURS Resulted 06/15/19 19:40 Blood Blood Culture - Preliminary NO GROWTH AFTER 24 HOURS Resulted 06/15/19 14:00 Urine,Catheterized Urine Culture - Final Escherichia Coli Complete Current Medications Medications (Trade) Dose Ordered Sig/Jaelyn Route PRN Reason Start Time Stop Time Status Last Admin Dose Admin Acetaminophen (Tylenol) 650 mg Q4H PRN ORAL Mild Pain (Pain Scale 1-3) 06/15/19 21:45 07/15/19 21:44 06/17/19 05:28 Albuterol Sulfate (Proventil) 2.5 mg Q3H PRN HHN sob 06/16/19 07:15 06/21/19 07:14 Aspirin (Ecotrin) 81 mg DAILY ORAL 06/16/19 09:00 07/31/19 08:59 06/17/19 09:17 Atenolol (Tenormin) 25 mg DAILY ORAL 06/16/19 09:00 07/16/19 08:59 06/17/19 09:17 Ceftriaxone Sodium 1 gm/ Dextrose 55 ml @ 110 mls/hr Q24H IVPB 06/15/19 21:15 06/22/19 21:14 06/16/19 20:40 Gabapentin (Neurontin) 300 mg THREE TIMES A DAY ORAL 06/16/19 18:00 07/16/19 17:59 06/17/19 09:17 Iohexol (OMNIPAQUE-300 100ml) 100 ml NOW PRN INJ Radiology Procedure 06/15/19 15:15 06/17/19 15:04 Lorazepam (Ativan) 0.5 mg BID ORAL 06/16/19 09:00 06/23/19 08:59 06/17/19 09:16 Nitroglycerin (Ntg) 0.4 mg PRN PRN SL CHEST PAIN 06/16/19 06:45 07/16/19 06:44 Ondansetron HCl (Zofran) 4 mg Q6H PRN IVP Nausea & Vomiting 06/15/19 21:45 07/15/19 21:44 Pravastatin Sodium (Pravachol) 20 mg BEDTIME ORAL 06/16/19 21:00 07/16/19 20:59 06/16/19 20:39 Salmeterol Xinafoate/ Fluticasone (Advair 100/50 Diskus) 1 puffs EVERY 12 HOURS INH 06/16/19 09:00 09/14/19 08:59 06/17/19 09:05 Valacyclovir HCl (Valtrex) 1,000 mg EVERY 8 HOURS ORAL 06/16/19 14:00 07/16/19 13:59 06/17/19 05:29 Suraj Elizalde MD Jun 17, 2019 11:56
[2019-06-17 12:00] VITALS: BP 143/91
--- NOTE | 2019-06-17 13:37 | Hematology/Onc Progress Note ---
Assessment/Plan Assessment/Plan Assessment and Recs # Leukocytosis/elevated white blood cell count, unspecified likely related to underlying stress reaction, smoking v more likely infection, is due to pyelonephroitis/hiv --> have reviewed peripheral smear and bandemia/neutrophilia noted --> continue antibiotics if they have been started by ID team --> monitor for resolution => on abx: ceftriaxone # Pyelonephritis --> on abx as per id --> monitor for resolution # Shingles on the left leg and BACK/Flank++ --> consider valacyclovir/acyclovir per id --> on valtrix --> contact iso # Renal stone -> on ivf, per uro # Pulmonary nodule # Epididymal cyst # CHF per cards The timing of this note does not necessarily reflect the time of the patient was seen. Greatly appreciate consultation. Subjective Allergies: Coded Allergies: Crab (Verified Allergy, Unknown, 04/15/17) Uncoded Allergies: SEAFOOD (Allergy, Unknown, 04/15/17) Subjective 06/16 no overnight events, on valtrix and ceftriaxone, on room air Objective Objective Current Medications Medications (Trade) Dose Ordered Sig/Jaelyn Route PRN Reason Start Time Stop Time Status Last Admin Dose Admin Acetaminophen (Tylenol) 650 mg Q4H PRN ORAL Mild Pain (Pain Scale 1-3) 06/15/19 21:45 07/15/19 21:44 06/17/19 05:28 Albuterol Sulfate (Proventil) 2.5 mg Q3H PRN HHN sob 06/16/19 07:15 06/21/19 07:14 Aspirin (Ecotrin) 81 mg DAILY ORAL 06/16/19 09:00 07/31/19 08:59 06/17/19 09:17 Atenolol (Tenormin) 25 mg DAILY ORAL 06/16/19 09:00 07/16/19 08:59 06/17/19 09:17 Ceftriaxone Sodium 1 gm/ Dextrose 55 ml @ 110 mls/hr Q24H IVPB 06/15/19 21:15 06/22/19 21:14 06/16/19 20:40 Gabapentin (Neurontin) 300 mg THREE TIMES A DAY ORAL 06/16/19 18:00 07/16/19 17:59 06/17/19 12:23 Iohexol (OMNIPAQUE-300 100ml) 100 ml NOW PRN INJ Radiology Procedure 06/15/19 15:15 06/17/19 15:04 Lorazepam (Ativan) 0.5 mg BID ORAL 06/16/19 09:00 06/23/19 08:59 06/17/19 09:16 Nitroglycerin (Ntg) 0.4 mg PRN PRN SL CHEST PAIN 06/16/19 06:45 07/16/19 06:44 Ondansetron HCl (Zofran) 4 mg Q6H PRN IVP Nausea & Vomiting 06/15/19 21:45 07/15/19 21:44 Pravastatin Sodium (Pravachol) 20 mg BEDTIME ORAL 06/16/19 21:00 07/16/19 20:59 06/16/19 20:39 Salmeterol Xinafoate/ Fluticasone (Advair 100/50 Diskus) 1 puffs EVERY 12 HOURS INH 06/16/19 09:00 09/14/19 08:59 06/17/19 09:05 Valacyclovir HCl (Valtrex) 1,000 mg EVERY 8 HOURS ORAL 06/16/19 14:00 07/16/19 13:59 06/17/19 05:29 Last 24 Hour Vital Signs Date Time Temp Pulse Resp B/P (MAP) Pulse Ox O2 Delivery O2 Flow Rate FiO2 06/17/19 09:17 78 145/92 06/17/19 09:06 78 18 97 Room Air 21 06/17/19 09:05 78 18 97 Room Air 21 06/17/19 08:00 97.6 76 20 145/92 (109) 96 06/17/19 05:58 99.3 06/17/19 04:00 99.3 89 18 147/93 (111) 98 06/17/19 00:00 98.7 86 18 137/87 (104) 98 06/16/19 21:57 Room Air 06/16/19 20:04 78 18 99 Room Air 21 06/16/19 20:03 77 18 98 Room Air 21 06/16/19 20:00 100.6 101 18 146/91 (109) 98 06/16/19 16:45 101.2 06/16/19 16:00 102.1 98 20 117/70 (86) 98 06/16/19 12:00 99.3 79 20 142/92 (109) 97 06/16/19 09:55 79 18 99 Room Air 21 06/16/19 09:55 75 16 98 Room Air 21 06/16/19 09:32 Room Air 06/16/19 09:05 81 133/91 06/16/19 08:00 98.4 81 20 133/91 (105) 100 06/16/19 04:00 99.0 85 150/89 (109) 06/16/19 00:00 100.4 88 144/87 (106) 06/15/19 22:29 Room Air 06/15/19 20:44 102.2 94 18 145/86 (105) 96 06/15/19 19:00 99.1 81 19 126/78 95 Room Air 06/15/19 17:36 99.1 81 19 126/78 95 Room Air 06/15/19 14:27 99.8 06/15/19 13:40 100.8 18 140/76 99 Room Air Intake and Output 06/16/19 06/17/19 19:00 07:00 Intake Total 800 ml 150 ml Balance 800 ml 150 ml Intake Oral 800 ml 150 ml # Voids 3 2 # Bowel Movements 1 Labs Test 06/15/19 13:30 06/15/19 14:00 06/16/19 05:25 White Blood Count 18.5 K/UL (4.8-10.8) 15.6 K/UL (4.8-10.8) Red Blood Count 5.21 M/UL (4.70-6.10) 5.11 M/UL (4.70-6.10) Hemoglobin 16.0 G/DL (14.2-18.0) 15.8 G/DL (14.2-18.0) Hematocrit 45.8 % (42.0-52.0) 44.9 % (42.0-52.0) Mean Corpuscular Volume 88 FL (80-99) 88 FL (80-99) Mean Corpuscular Hemoglobin 30.7 PG (27.0-31.0) 30.9 PG (27.0-31.0) Mean Corpuscular Hemoglobin Concent 34.9 G/DL (32.0-36.0) 35.2 G/DL (32.0-36.0) Red Cell Distribution Width 11.3 % (11.6-14.8) 10.9 % (11.6-14.8) Platelet Count 345 K/UL (150-450) 312 K/UL (150-450) Mean Platelet Volume 6.1 FL (6.5-10.1) 6.2 FL (6.5-10.1) Neutrophils (%) (Auto) 75.9 % (45.0-75.0) 77.5 % (45.0-75.0) Lymphocytes (%) (Auto) 12.8 % (20.0-45.0) 10.8 % (20.0-45.0) Monocytes (%) (Auto) 10.6 % (1.0-10.0) 10.6 % (1.0-10.0) Eosinophils (%) (Auto) 0.2 % (0.0-3.0) 0.6 % (0.0-3.0) Basophils (%) (Auto) 0.6 % (0.0-2.0) 0.5 % (0.0-2.0) Prothrombin Time 10.7 SEC (9.30-11.50) Prothromb Time International Ratio 1.0 (0.9-1.1) Activated Partial Thromboplast Time 32 SEC (23-33) Sodium Level 133 MMOL/L (136-145) 133 MMOL/L (136-145) Potassium Level 3.7 MMOL/L (3.5-5.1) 3.5 MMOL/L (3.5-5.1) Chloride Level 96 MMOL/L (98-107) 97 MMOL/L (98-107) Carbon Dioxide Level 28 MMOL/L (21-32) 27 MMOL/L (21-32) Anion Gap 9 mmol/L (5-15) 10 mmol/L (5-15) Blood Urea Nitrogen 18 mg/dL (7-18) 19 mg/dL (7-18) Creatinine 1.3 MG/DL (0.55-1.30) 1.1 MG/DL (0.55-1.30) Estimat Glomerular Filtration Rate 56.7 mL/min (>60) > 60 mL/min (>60) Glucose Level 92 MG/DL (74-106) 94 MG/DL (74-106) Lactic Acid Level 1.00 mmol/L (0.4-2.0) Calcium Level 8.8 MG/DL (8.5-10.1) 8.4 MG/DL (8.5-10.1) Total Bilirubin 1.0 MG/DL (0.2-1.0) 1.1 MG/DL (0.2-1.0) Aspartate Amino Transf (AST/SGOT) 19 U/L (15-37) 20 U/L (15-37) Alanine Aminotransferase (ALT/SGPT) 35 U/L (12-78) 29 U/L (12-78) Alkaline Phosphatase 86 U/L (46-116) 88 U/L (46-116) Troponin I 0.000 ng/mL (0.000-0.056) Pro-B-Type Natriuretic Peptide 179 pg/mL (0-125) Total Protein 7.7 G/DL (6.4-8.2) 7.3 G/DL (6.4-8.2) Albumin 3.4 G/DL (3.4-5.0) 3.1 G/DL (3.4-5.0) Globulin 4.3 g/dL 4.2 g/dL Albumin/Globulin Ratio 0.8 (1.0-2.7) 0.7 (1.0-2.7) Urine Color Yellow Urine Appearance Cloudy Urine pH 6 (4.5-8.0) Urine Specific [place] 1.010 (1.005-1.035) Urine Protein 2+ (NEGATIVE) Urine Glucose (UA) Negative (NEGATIVE) Urine Ketones 1+ (NEGATIVE) Urine Blood 5+ (NEGATIVE) Urine Nitrite Positive (NEGATIVE) Urine Bilirubin Negative (NEGATIVE) Urine Urobilinogen 1 MG/DL (0.0-1.0) Urine Leukocyte Esterase 3+ (NEGATIVE) Urine RBC Tntc /HPF (0 - 0) Urine WBC Tntc /HPF (0 - 0) Urine Squamous Epithelial Cells None /LPF (NONE/OCC) Urine Bacteria Many /HPF (NONE) Direct Bilirubin 0.6 MG/DL (0.0-0.3) Height (Feet): 5 Height (Inches): 8.00 Weight (Pounds): 180 Objective ROS: Constitutional: No fever, no chills, no night sweats, no fatigue Skin: No rashes, lumps, itchiness, dryness HEENT: No LAURENT, ear ache, visual changes, double vision, nosebleeds Breasts: No lumps, pain, discharge Pulmonary: No cough, sputum, shortness of breath, coughing up blood Cardiovascular: No chest pain, tightness, palpitations, syncope, PND GI: No nausea, vomiting, diarrhea, melena, hematochezia, change in appetite, : No dysuria, frequency, urgency, urinary incontinence, foamy urine Musculoskeletal: No joint swelling or muscle pain, trauma, back pain Neurologic: No dizziness, fainting, seizures, changes in smell or taste Psychiatric: No nervousness, stress, or depression, anxiety, hallucinations Endocrine: No weight change, heat or cold intolerance, tremor, insomnia Physical Exam: Vitals: reviewed General: NAD HEENT: at, room air Neck: supple Chest: clear breath sounds bilaterally Cardiovascular: RRR, no s3, s4 Abdomen: soft, nontender, nd Extremities: no cce, normal range of motion Neuro: alert and oriented Skin: rash - Vesicular rash on erythematous base on left thigh spreading to the left flank Yoan Monroe MD Jun 17, 2019 13:37
[2019-06-17 15:35] VITALS: BP 137/87
--- NOTE | 2019-06-17 16:37 | General Progress Note ---
Assessment/Plan Assessment/Plan: (1) Left sided flank pain (2) Pyelonephritis (3) Herpes Zoster (4) Post Herpetic Neuralgia Patient to be continued on Neurontin and Tylenol D/w Dr. Love and he concurred. Subjective Date patient seen: Jun 17, 2019 Time patient seen: 04:15 - pm Allergies: Coded Allergies: Crab (Verified Allergy, Unknown, 04/15/17) Uncoded Allergies: SEAFOOD (Allergy, Unknown, 04/15/17) Subjective REVIEW OF SYSTEMS: Denies rash, fever, chills, sweating, dizziness, drowsiness, sore throat, or change in weight. No shortness of breath, chest pain, palpitations, or cough. No nausea, vomiting, diarrhea, or blood in the stool. He is complaining of left-sided flank pain. SUBJECTIVE: Patient is doing well pain is at a mild level. Objective Last 24 Hour Vital Signs Date Time Temp Pulse Resp B/P (MAP) Pulse Ox O2 Delivery O2 Flow Rate FiO2 06/17/19 15:35 97.6 82 18 137/87 (104) 96 06/17/19 12:00 97.8 75 20 143/91 (108) 98 06/17/19 09:17 78 145/92 06/17/19 09:06 78 18 97 Room Air 21 06/17/19 09:05 78 18 97 Room Air 21 06/17/19 09:00 Room Air 06/17/19 08:00 97.6 76 20 145/92 (109) 96 06/17/19 05:58 99.3 06/17/19 04:00 99.3 89 18 147/93 (111) 98 06/17/19 00:00 98.7 86 18 137/87 (104) 98 06/16/19 21:57 Room Air 06/16/19 20:04 78 18 99 Room Air 21 06/16/19 20:03 77 18 98 Room Air 21 06/16/19 20:00 100.6 101 18 146/91 (109) 98 06/16/19 16:45 101.2 Intake and Output 06/16/19 06/17/19 19:00 07:00 Intake Total 800 ml 150 ml Balance 800 ml 150 ml Intake Oral 800 ml 150 ml # Voids 3 2 # Bowel Movements 1 Height (Feet): 5 Height (Inches): 8.00 Weight (Pounds): 180 Objective GENERAL: Alert, awake, and oriented. LUNGS: Decreased breath sounds bilaterally. HEART: Regular. ABDOMEN: Soft and nontender. EXTREMITIES:No cyanosis. No clubbing. NEURO: No changes. Ned Cruz Jun 17, 2019 16:37
[2019-06-17 19:48] VITALS: BP 136/84
[2019-06-17] MEDS: cefTRIAXone 1 GM in D5W 55 ML IVPB SCH (21:09)
--- NOTE | 2019-06-17 21:56 | General Progress Note ---
Assessment/Plan Problem List: (1) ACS (acute coronary syndrome) ICD Codes: I20.0 - Unstable angina SNOMED: 143147163 (2) Syncope ICD Codes: R55 - Syncope and collapse SNOMED: 232884802 (3) Pneumonia ICD Codes: J18.9 - Pneumonia, unspecified organism SNOMED: 614605425 (4) Shingles ICD Codes: B02.9 - Zoster without complications SNOMED: 4022980 (5) Pyelonephritis ICD Codes: N12 - Tubulo-interstitial nephritis, not specified as acute or chronic SNOMED: 07378405 Assessment/Plan: pylonephritis uti abx per id afebrile weak reviewed chart and labs pna syncope w/u not hypoxic Subjective ROS Limited/Unobtainable: Yes Allergies: Coded Allergies: Crab (Verified Allergy, Unknown, 04/15/17) Uncoded Allergies: SEAFOOD (Allergy, Unknown, 04/15/17) Objective Last 24 Hour Vital Signs Date Time Temp Pulse Resp B/P (MAP) Pulse Ox O2 Delivery O2 Flow Rate FiO2 06/17/19 20:42 Room Air 06/17/19 20:18 98.2 06/17/19 19:48 98.2 80 20 136/84 (101) 97 06/17/19 15:35 97.6 82 18 137/87 (104) 96 06/17/19 12:00 97.8 75 20 143/91 (108) 98 06/17/19 09:17 78 145/92 06/17/19 09:06 78 18 97 Room Air 21 06/17/19 09:05 78 18 97 Room Air 21 06/17/19 09:00 Room Air 06/17/19 08:00 97.6 76 20 145/92 (109) 96 06/17/19 04:00 99.3 89 18 147/93 (111) 98 06/17/19 00:00 98.7 86 18 137/87 (104) 98 06/16/19 21:57 Room Air Intake and Output 06/16/19 06/17/19 19:00 07:00 Intake Total 800 ml 150 ml Balance 800 ml 150 ml Intake Oral 800 ml 150 ml # Voids 3 2 # Bowel Movements 1 Height (Feet): 5 Height (Inches): 8.00 Weight (Pounds): 180 Timo Irving MD Jun 17, 2019 21:56
[2019-06-18 04:00] VITALS: BP 159/88
[2019-06-18] MEDS: valACYclovir HCL 500mg tab ORAL SCH ×2 (05:11→13:02)
[2019-06-18 08:33] VITALS: BP 144/90
[2019-06-18] MEDS: Atenolol 25mg tab ORAL SCH (08:49)
[2019-06-18] MEDS: LORazepam 0.5mg tab ORAL SCH (08:49)
[2019-06-18] MEDS: Aspirin EC 81mg tab ORAL SCH (08:49)
[2019-06-18] MEDS: Wixela 100/50 Inhaler - 60 dose INH SCH (09:22)
--- NOTE | 2019-06-18 09:31 | Hematology/Onc Progress Note ---
Assessment/Plan Assessment/Plan Assessment and Recs # Leukocytosis/elevated white blood cell count, unspecified likely related to underlying stress reaction, smoking v more likely infection, is due to pyelonephroitis/hiv --> have reviewed peripheral smear and bandemia/neutrophilia noted --> continue antibiotics if they have been started by ID team --> monitor for resolution => on abx: ceftriaxone --> wbc 18-->15 # Pyelonephritis --> on abx as per id --> monitor for resolution # Shingles on the left leg and BACK/Flank++ --> consider valacyclovir/acyclovir per id --> on valtrix --> contact iso # Renal stone -> on ivf, per uro # Pulmonary nodule # Epididymal cyst # CHF per cards The timing of this note does not necessarily reflect the time of the patient was seen. Greatly appreciate consultation. Subjective Constitutional: Denies: no symptoms, chills, fever, malaise, weakness, other HEENT: Denies: no symptoms, eye pain, blurred vision, tearing, double vision, ear pain, ear discharge, nose pain, nose congestion, throat pain, throat swelling, mouth pain, mouth swelling, other Cardiovascular: Denies: no symptoms, chest pain, edema, irregular heart rate, lightheadedness, palpitations, syncope, other Respiratory: Denies: no symptoms, cough, shortness of breath, SOB with excertion, SOB at rest, sputum, wheezing, other Gastrointestinal/Abdominal: Denies: no symptoms, abdomen distended, abdominal pain, black stools, tarry stools, blood in stool, constipated, diarrhea, difficulty swallowing, nausea, poor appetite, poor fluid intake, rectal bleeding , vomiting, other Neurologic/Psychiatric: Denies: no symptoms, anxiety, depressed, emotional problems, headache, numbness, paresthesia, pre-existing deficit, seizure, tingling, tremors, weakness, other Endocrine: Denies: no symptoms, excessive sweating, flushing, intolerance to cold, intolerance to heat, increased hunger, increased thirst, increased urine, unexplained weight gain, unexplained weight loss, other Hematologic/Lymphatic: Denies: no symptoms, anemia, easy bleeding, easy bruising, adenopathy, other Allergies: Coded Allergies: Crab (Verified Allergy, Unknown, 04/15/17) Uncoded Allergies: SEAFOOD (Allergy, Unknown, 04/15/17) Subjective 06/16 no overnight events, on valtrix and ceftriaxone, on room air 06/17 no major changes, cbc and bmp has been noted, on abx Objective Objective Current Medications Medications (Trade) Dose Ordered Sig/Jaelyn Route PRN Reason Start Time Stop Time Status Last Admin Dose Admin Acetaminophen (Tylenol) 650 mg Q4H PRN ORAL Mild Pain (Pain Scale 1-3) 06/15/19 21:45 07/15/19 21:44 06/18/19 05:12 Albuterol Sulfate (Proventil) 2.5 mg Q3H PRN HHN sob 06/16/19 07:15 06/21/19 07:14 Aspirin (Ecotrin) 81 mg DAILY ORAL 06/16/19 09:00 07/31/19 08:59 06/18/19 08:49 Atenolol (Tenormin) 25 mg DAILY ORAL 06/16/19 09:00 07/16/19 08:59 06/18/19 08:49 Ceftriaxone Sodium 1 gm/ Dextrose 55 ml @ 110 mls/hr Q24H IVPB 06/15/19 21:15 06/22/19 21:14 06/17/19 21:09 Gabapentin (Neurontin) 300 mg THREE TIMES A DAY ORAL 06/16/19 18:00 07/16/19 17:59 06/18/19 08:49 Lorazepam (Ativan) 0.5 mg BID ORAL 06/16/19 09:00 06/23/19 08:59 06/18/19 08:49 Nitroglycerin (Ntg) 0.4 mg PRN PRN SL CHEST PAIN 06/16/19 06:45 07/16/19 06:44 Ondansetron HCl (Zofran) 4 mg Q6H PRN IVP Nausea & Vomiting 06/15/19 21:45 07/15/19 21:44 Pravastatin Sodium (Pravachol) 20 mg BEDTIME ORAL 06/16/19 21:00 07/16/19 20:59 06/17/19 21:09 Salmeterol Xinafoate/ Fluticasone (Advair 100/50 Diskus) 1 puffs EVERY 12 HOURS INH 06/16/19 09:00 09/14/19 08:59 06/18/19 09:22 Valacyclovir HCl (Valtrex) 1,000 mg EVERY 8 HOURS ORAL 06/16/19 14:00 07/16/19 13:59 06/18/19 05:11 Last 24 Hour Vital Signs Date Time Temp Pulse Resp B/P (MAP) Pulse Ox O2 Delivery O2 Flow Rate FiO2 06/18/19 09:27 83 18 97 Room Air 21 06/18/19 09:27 83 18 97 Room Air 06/18/19 08:49 86 144/90 06/18/19 08:33 98.2 86 16 144/90 (108) 98 06/18/19 05:51 98.2 06/18/19 04:00 97.7 84 16 159/88 (111) 98 06/17/19 21:15 82 18 96 Room Air 06/17/19 21:14 84 18 96 Room Air 06/17/19 20:42 Room Air 06/17/19 19:48 98.2 80 20 136/84 (101) 97 06/17/19 15:35 97.6 82 18 137/87 (104) 96 06/17/19 12:00 97.8 75 20 143/91 (108) 98 06/17/19 09:17 78 145/92 06/17/19 09:06 78 18 97 Room Air 06/17/19 09:05 78 18 97 Room Air 06/17/19 09:00 Room Air 06/17/19 08:00 97.6 76 20 145/92 (109) 96 06/17/19 04:00 99.3 89 18 147/93 (111) 98 06/17/19 00:00 98.7 86 18 137/87 (104) 98 06/16/19 21:57 Room Air 06/16/19 20:04 78 18 99 Room Air 06/16/19 20:03 77 18 98 Room Air 06/16/19 20:00 100.6 101 18 146/91 (109) 98 06/16/19 16:45 101.2 06/16/19 16:00 102.1 98 20 117/70 (86) 98 06/16/19 12:00 99.3 79 20 142/92 (109) 97 06/16/19 09:55 79 18 99 Room Air 06/16/19 09:55 75 16 98 Room Air 21 06/16/19 09:32 Room Air Intake and Output 06/17/19 06/18/19 19:00 07:00 Intake Total 500 ml 855 ml Balance 500 ml 855 ml Intake Oral 500 ml 800 ml IV Total 55 ml # Voids 3 4 Labs Test 06/15/19 13:30 06/15/19 14:00 06/16/19 05:25 White Blood Count 18.5 K/UL (4.8-10.8) 15.6 K/UL (4.8-10.8) Red Blood Count 5.21 M/UL (4.70-6.10) 5.11 M/UL (4.70-6.10) Hemoglobin 16.0 G/DL (14.2-18.0) 15.8 G/DL (14.2-18.0) Hematocrit 45.8 % (42.0-52.0) 44.9 % (42.0-52.0) Mean Corpuscular Volume 88 FL (80-99) 88 FL (80-99) Mean Corpuscular Hemoglobin 30.7 PG (27.0-31.0) 30.9 PG (27.0-31.0) Mean Corpuscular Hemoglobin Concent 34.9 G/DL (32.0-36.0) 35.2 G/DL (32.0-36.0) Red Cell Distribution Width 11.3 % (11.6-14.8) 10.9 % (11.6-14.8) Platelet Count 345 K/UL (150-450) 312 K/UL (150-450) Mean Platelet Volume 6.1 FL (6.5-10.1) 6.2 FL (6.5-10.1) Neutrophils (%) (Auto) 75.9 % (45.0-75.0) 77.5 % (45.0-75.0) Lymphocytes (%) (Auto) 12.8 % (20.0-45.0) 10.8 % (20.0-45.0) Monocytes (%) (Auto) 10.6 % (1.0-10.0) 10.6 % (1.0-10.0) Eosinophils (%) (Auto) 0.2 % (0.0-3.0) 0.6 % (0.0-3.0) Basophils (%) (Auto) 0.6 % (0.0-2.0) 0.5 % (0.0-2.0) Prothrombin Time 10.7 SEC (9.30-11.50) Prothromb Time International Ratio 1.0 (0.9-1.1) Activated Partial Thromboplast Time 32 SEC (23-33) Sodium Level 133 MMOL/L (136-145) 133 MMOL/L (136-145) Potassium Level 3.7 MMOL/L (3.5-5.1) 3.5 MMOL/L (3.5-5.1) Chloride Level 96 MMOL/L (98-107) 97 MMOL/L (98-107) Carbon Dioxide Level 28 MMOL/L (21-32) 27 MMOL/L (21-32) Anion Gap 9 mmol/L (5-15) 10 mmol/L (5-15) Blood Urea Nitrogen 18 mg/dL (7-18) 19 mg/dL (7-18) Creatinine 1.3 MG/DL (0.55-1.30) 1.1 MG/DL (0.55-1.30) Estimat Glomerular Filtration Rate 56.7 mL/min (>60) > 60 mL/min (>60) Glucose Level 92 MG/DL (74-106) 94 MG/DL (74-106) Lactic Acid Level 1.00 mmol/L (0.4-2.0) Calcium Level 8.8 MG/DL (8.5-10.1) 8.4 MG/DL (8.5-10.1) Total Bilirubin 1.0 MG/DL (0.2-1.0) 1.1 MG/DL (0.2-1.0) Aspartate Amino Transf (AST/SGOT) 19 U/L (15-37) 20 U/L (15-37) Alanine Aminotransferase (ALT/SGPT) 35 U/L (12-78) 29 U/L (12-78) Alkaline Phosphatase 86 U/L (46-116) 88 U/L (46-116) Troponin I 0.000 ng/mL (0.000-0.056) Pro-B-Type Natriuretic Peptide 179 pg/mL (0-125) Total Protein 7.7 G/DL (6.4-8.2) 7.3 G/DL (6.4-8.2) Albumin 3.4 G/DL (3.4-5.0) 3.1 G/DL (3.4-5.0) Globulin 4.3 g/dL 4.2 g/dL Albumin/Globulin Ratio 0.8 (1.0-2.7) 0.7 (1.0-2.7) Urine Color Yellow Urine Appearance Cloudy Urine pH 6 (4.5-8.0) Urine Specific [place] 1.010 (1.005-1.035) Urine Protein 2+ (NEGATIVE) Urine Glucose (UA) Negative (NEGATIVE) Urine Ketones 1+ (NEGATIVE) Urine Blood 5+ (NEGATIVE) Urine Nitrite Positive (NEGATIVE) Urine Bilirubin Negative (NEGATIVE) Urine Urobilinogen 1 MG/DL (0.0-1.0) Urine Leukocyte Esterase 3+ (NEGATIVE) Urine RBC Tntc /HPF (0 - 0) Urine WBC Tntc /HPF (0 - 0) Urine Squamous Epithelial Cells None /LPF (NONE/OCC) Urine Bacteria Many /HPF (NONE) Direct Bilirubin 0.6 MG/DL (0.0-0.3) Height (Feet): 5 Height (Inches): 8.00 Weight (Pounds): 180 Objective ROS: Constitutional: No fever, no chills, no night sweats, no fatigue Skin: No rashes, lumps, itchiness, dryness HEENT: No LAURENT, ear ache, visual changes, double vision, nosebleeds Breasts: No lumps, pain, discharge Pulmonary: No cough, sputum, shortness of breath, coughing up blood Cardiovascular: No chest pain, tightness, palpitations, syncope, PND GI: No nausea, vomiting, diarrhea, melena, hematochezia, change in appetite, : No dysuria, frequency, urgency, urinary incontinence, foamy urine Musculoskeletal: No joint swelling or muscle pain, trauma, back pain Neurologic: No dizziness, fainting, seizures, changes in smell or taste Psychiatric: No nervousness, stress, or depression, anxiety, hallucinations Endocrine: No weight change, heat or cold intolerance, tremor, insomnia Physical Exam: Vitals: reviewed General: NAD HEENT: at, room air Neck: supple Chest: clear breath sounds bilaterally Cardiovascular: RRR, no s3, s4 Abdomen: soft, nontender, nd Extremities: no cce, normal range of motion Neuro: alert and oriented Skin: rash - Vesicular rash on erythematous base on left thigh spreading to the left flank Yoan Monroe MD Jun 18, 2019 09:31
--- NOTE | 2019-06-18 11:59 | Infectious Diseases Prog Note ---
Assessment/Plan Assessment/Plan IMPRESSION: Sepsis,with fever, leukocytosis. Pyelonephritis, urine culture E.coli Herpes zoster of the skin, splenomegaly. RECOMMENDATIONS: We will continue ceftriaxone & p.o. Valacyclovir. Subjective ROS Limited/Unobtainable: No Constitutional: Reports: no symptoms, other - feels better Respiratory: Reports: no symptoms Cardiovascular: Reports: no symptoms Gastrointestinal/Abdominal: Reports: no symptoms Genitourinary: Reports: no symptoms Skin: Reports: rash Allergies: Coded Allergies: Crab (Verified Allergy, Unknown, 04/15/17) Uncoded Allergies: SEAFOOD (Allergy, Unknown, 04/15/17) Objective Vital Signs Last 24 Hour Vital Signs Date Time Temp Pulse Resp B/P (MAP) Pulse Ox O2 Delivery O2 Flow Rate FiO2 06/18/19 09:27 83 18 97 Room Air 21 06/18/19 09:27 83 18 97 Room Air 21 06/18/19 09:00 Room Air 06/18/19 08:49 86 144/90 06/18/19 08:33 98.2 86 16 144/90 (108) 98 06/18/19 05:51 98.2 06/18/19 04:00 97.7 84 16 159/88 (111) 98 06/17/19 21:15 82 18 96 Room Air 21 06/17/19 21:14 84 18 96 Room Air 21 06/17/19 20:42 Room Air 06/17/19 19:48 98.2 80 20 136/84 (101) 97 06/17/19 15:35 97.6 82 18 137/87 (104) 96 06/17/19 12:00 97.8 75 20 143/91 (108) 98 Height (Feet): 5 Height (Inches): 8.00 Weight (Pounds): 180 General Appearance: no acute distress HEENT: mucous membranes moist Respiratory/Chest: lungs clear Cardiovascular: normal rate Abdomen: soft, non tender Extremities: no edema Skin: rash, other - left groin & thigh Neurologic/Psychiatric: alert, oriented x 3, responsive Microbiology Date/Time Source Procedure Growth Status 06/15/19 19:50 Blood Blood Culture - Preliminary NO GROWTH AFTER 48 HOURS Resulted 06/15/19 19:40 Blood Blood Culture - Preliminary NO GROWTH AFTER 48 HOURS Resulted 06/16/19 12:00 Nasal Nares MRSA Culture - Final NO METHICILLIN RESISTANT STAPH AUREUS... Complete 06/15/19 14:00 Urine,Catheterized Urine Culture - Final Escherichia Coli Complete 06/16/19 12:00 Rectum - Final NO CARBAPENEM-RESISTANT ENTEROBACTERI... Complete Current Medications Medications (Trade) Dose Ordered Sig/Jaelyn Route PRN Reason Start Time Stop Time Status Last Admin Dose Admin Acetaminophen (Tylenol) 650 mg Q4H PRN ORAL Mild Pain (Pain Scale 1-3) 06/15/19 21:45 07/15/19 21:44 06/18/19 05:12 Albuterol Sulfate (Proventil) 2.5 mg Q3H PRN HHN sob 06/16/19 07:15 06/21/19 07:14 Aspirin (Ecotrin) 81 mg DAILY ORAL 06/16/19 09:00 07/31/19 08:59 06/18/19 08:49 Atenolol (Tenormin) 25 mg DAILY ORAL 06/16/19 09:00 07/16/19 08:59 06/18/19 08:49 Ceftriaxone Sodium 1 gm/ Dextrose 55 ml @ 110 mls/hr Q24H IVPB 06/15/19 21:15 06/22/19 21:14 06/17/19 21:09 Gabapentin (Neurontin) 300 mg THREE TIMES A DAY ORAL 06/16/19 18:00 07/16/19 17:59 06/18/19 08:49 Lorazepam (Ativan) 0.5 mg BID ORAL 06/16/19 09:00 06/23/19 08:59 06/18/19 08:49 Nitroglycerin (Ntg) 0.4 mg PRN PRN SL CHEST PAIN 06/16/19 06:45 07/16/19 06:44 Ondansetron HCl (Zofran) 4 mg Q6H PRN IVP Nausea & Vomiting 06/15/19 21:45 07/15/19 21:44 Pravastatin Sodium (Pravachol) 20 mg BEDTIME ORAL 06/16/19 21:00 07/16/19 20:59 06/17/19 21:09 Salmeterol Xinafoate/ Fluticasone (Advair 100/50 Diskus) 1 puffs EVERY 12 HOURS INH 06/16/19 09:00 09/14/19 08:59 06/18/19 09:22 Valacyclovir HCl (Valtrex) 1,000 mg EVERY 8 HOURS ORAL 06/16/19 14:00 07/16/19 13:59 06/18/19 05:11 Suraj Elizalde MD Jun 18, 2019 11:59
[2019-06-18 12:00] VITALS: BP 142/82
[2019-06-18 12:19] LABS: BASOPHILS % (AUTO) 0.7 % (0.0-2.0); EOSINOPHILS % (AUTO) 1.6 % (0.0-3.0); HEMATOCRIT 48.5 % (42.0-52.0); HEMOGLOBIN 16.6 G/DL (14.2-18.0); LYMPHOCYTES % (AUTO) 21.1 % (20.0-45.0); MEAN CORPUSCULAR VOLUME 88 FL (80-99); MONOCYTES % (AUTO) 9.5 % (1.0-10.0); NEUTROPHILS % (AUTO) 67.2 % (45.0-75.0); PLATELET COUNT 328 K/UL (150-450); RED CELL DISTRIBUTION WIDTH 11.3 % (11.6-14.8); WHITE BLOOD COUNT 9.2 K/UL (4.8-10.8)
[2019-06-18 13:12] LABS: ANION GAP 9 mmol/L (5-15); BLOOD UREA NITROGEN 20 mg/dL (7-18); CALCIUM 9.4 MG/DL (8.5-10.1); CARBON DIOXIDE 29 MMOL/L (21-32); CHLORIDE 97 MMOL/L (98-107); POTASSIUM 3.9 MMOL/L (3.5-5.1); SODIUM 135 MMOL/L (136-145)
--- NOTE | 2019-06-18 13:28 | General Progress Note ---
Assessment/Plan Assessment/Plan: (1) Left sided flank pain (2) Pyelonephritis (3) Herpes Zoster (4) Post Herpetic Neuralgia Patient to be continued on Neurontin and Tylenol D/w Dr. Love and he concurred. Subjective Date patient seen: Jun 18, 2019 Time patient seen: 01:00 - pm Allergies: Coded Allergies: Crab (Verified Allergy, Unknown, 04/15/17) Uncoded Allergies: SEAFOOD (Allergy, Unknown, 04/15/17) Subjective REVIEW OF SYSTEMS: Denies rash, fever, chills, sweating, dizziness, drowsiness, sore throat, or change in weight. No shortness of breath, chest pain, palpitations, or cough. No nausea, vomiting, diarrhea, or blood in the stool. He is complaining of left-sided flank pain. SUBJECTIVE: Patient reports pain has been at a mild level and tolerated on the Neurontin and Tylenol. Reports that he would like to be discharged as per emergency manager. Objective Last 24 Hour Vital Signs Date Time Temp Pulse Resp B/P (MAP) Pulse Ox O2 Delivery O2 Flow Rate FiO2 06/18/19 09:27 83 18 97 Room Air 21 06/18/19 09:27 83 18 97 Room Air 21 06/18/19 09:00 Room Air 06/18/19 08:49 86 144/90 06/18/19 08:33 98.2 86 16 144/90 (108) 98 06/18/19 05:51 98.2 06/18/19 04:00 97.7 84 16 159/88 (111) 98 06/17/19 21:15 82 18 96 Room Air 21 06/17/19 21:14 84 18 96 Room Air 21 06/17/19 20:42 Room Air 06/17/19 19:48 98.2 80 20 136/84 (101) 97 06/17/19 15:35 97.6 82 18 137/87 (104) 96 Intake and Output 06/17/19 06/18/19 19:00 07:00 Intake Total 500 ml 855 ml Balance 500 ml 855 ml Intake Oral 500 ml 800 ml IV Total 55 ml # Voids 3 4 Laboratory Tests 06/18/19 12:05: White Blood Count 9.2, Red Blood Count 5.50, Hemoglobin 16.6, Hematocrit 48.5, Mean Corpuscular Volume 88, Mean Corpuscular Hemoglobin 30.1, Mean Corpuscular Hemoglobin Concent 34.2, Red Cell Distribution Width 11.3L, Platelet Count 328, Mean Platelet Volume 6.2L, Neutrophils (%) (Auto) 67.2, Lymphocytes (%) (Auto) 21.1, Monocytes (%) (Auto) 9.5, Eosinophils (%) (Auto) 1.6, Basophils (%) (Auto ) 0.7, Sodium Level 135L, Potassium Level 3.9, Chloride Level 97L, Carbon Dioxide Level 29, Anion Gap 9, Blood Urea Nitrogen 20H, Creatinine 1.0, Estimat Glomerular Filtration Rate > 60, Glucose Level 91, Calcium Level 9.4 Height (Feet): 5 Height (Inches): 8.00 Weight (Pounds): 180 Objective GENERAL: Alert, awake, and oriented. LUNGS: Decreased breath sounds bilaterally. HEART: Regular. ABDOMEN: Soft and nontender. EXTREMITIES:No cyanosis. No clubbing. NEURO: No changes. Ned Cruz Jun 18, 2019 13:28
[2019-06-18 16:00] VITALS: BP 144/80
--- NOTE | 2019-06-20 15:15 | Discharge Summary ---
Discharge Summary Discharge Summary _ DATE OF ADMISSION: 06/15/2019 DATE OF DISCHARGE: 06/18/2019 DISCHARGED BY: Dr. Irving REASON FOR ADMISSION: 59 years old male with history of congestive heart failure, BPH , presented with complaint of one week of left-sided testicular pain with radiation to left lower abdomen and left flank. Pain was rated as 7 out of 10. Patient reported taking ibuprofen with minimal relief. No painful urination or urinary frequency. He denied acute abdominal pain, nausea, vomiting, diarrhea. No fever or chills. No chest pain or shortness of breath. No cough or congestion. No recent travel. Patient reported rash on the left side spreading to the left flank, started around the same time as testicular pain. Patient reported tingling sensation at first and further itching along with pain at the site of rash. No testicular swelling or penile discharge. Upon evaluation patient had low-grade fever 100.8 , otherwise vital signs were stable. Laboratory work-up revealed leukocytosis WBC 18.5, stable hemoglobin, hematocrit and platelet count. Lactic acid 1.0. Troponin negative. Pro BNP 179. Sodium 133, chloride 96. Stable renal parameters. Urinalysis revealed evidence of urinary tract infection , +2 protein. Testicular ultrasound revealed no acute abnormalities. Incidental findings noted, including bilateral epididymal and testicular parenchymal calcification , bilateral epididymal cysts, prominent epididymal tail and small bilateral hydroceles. CT scan of the abdomen and pelvis demonstrated abnormal heterogeneous and somewhat striated left renal nephrogram , particular in the upper pole with slight perinephric fat stranding; findings were suspicious for nephritis. 4 mm nodule of the left lung base. Splenomegaly. Questionable nonobstructing left intrarenal calculus. Physical exam revealed vesicular rash on erythematous base of the left thigh, spreading to the left flank in a dermatomal pattern. Patient admitted with pyelonephritis, shingles, possible renal stone , pulmonary nodule and epididymal cyst. CONSULTANTS: ID specialist Dr. Suraj Dias cheese specialist/oncologist pain specialist Dr. Love HOSPITAL COURSE: Patient admitted to medical surgical floor and started on IV fluids and empiric antibiotics. Patient also started on valacyclovir for herpes zoster. Urine culture revealed E. coli. Blood cultures were negative. Leukocytosis and fevers resolved . Patient was recommended to get Shingrix vaccine to prevent further recurrences of shingles. Pain management was addressed as per buildings painter. Renal parameters and electrolytes were closely monitored, electrolytes corrected as needed, and nephrotoxins were avoided. Renal parameters remained stable. Home medication continued. Patient clinically stabilized and was ready for discharge home. Patient was recommended to repeat CT scan in 12 months FINAL DIAGNOSES: Sepsis with fever and leukocytosis and evidence of infection/UTI Pyelonephritis with E. coli Herpes zoster Splenomegaly Postherpetic neuralgia Pulmonary nodule Epididymal cyst Renal stones possible renal stone DISCHARGE MEDICATIONS: See Medication Reconciliation list. DISCHARGE INSTRUCTIONS: Patient was discharged home Follow-up with a primary care provider. Recommended to repeat CT scan for follow-up on pulmonary nodule in 12 months. I have been assigned to dictate discharge summary for this account. I was not involved in the patient's management. Danitza Kulkarni NP Jun 20, 2019 15:15
== END 2019-06-18 17:47 | disposition home or self-care (01) | DRG 976 ==
LOC: EMR 13:55 → 3E 16:46 → EDBEDREQ 17:08 → 3E 20:52
DX: A41.9 Sepsis, unspecified organism (principal); B20 Human immunodeficiency virus [HIV] disease; B02.29 Other postherpetic nervous system involvement; B02.8 Zoster with other complications; N20.0 Calculus of kidney; B96.20 Unspecified Escherichia coli [E. coli] as the cause of diseases classified elsewhere; R16.1 Splenomegaly, not elsewhere classified; R91.1 Solitary pulmonary nodule; N50.3 Cyst of epididymis; Z79.82 Long term (current) use of aspirin; I25.2 Old myocardial infarction; F17.200 Nicotine dependence, unspecified, uncomplicated; F15.11 Other stimulant abuse, in remission
CPT/HCPCS: 36415; 74177; 76870; 80048; 80053; 81003; 82248; 83605; 83880; 84484; 85025; 85610; 85730; 87040; 87081; 87086; 87181; 93005; 94640; 96365; 96367; 99285; J7030

== ENCOUNTER 2019-07-21 13:45 | Emergency (ER) | payer MEDICARE, MEDICAID ==
[~2019-07-21] VITALS: Ht 172.7 cm; Wt 95.3 kg
[~2019-07-21 13:45] MED LIST changes: +BIKTARVY 50-201 EACH PO
--- NOTE | 2019-07-21 14:50 | NUR ---
ED Nurse Note:pt. came with right eye redness for several days, ct head was done
[2019-07-21 15:22] VITALS: BP 140/89
--- NOTE | 2019-07-21 15:42 | Diagnostic Imaging Report ---
Indications: Left eye injury, infection Technique: Spiral acquisitions obtained through the brain. Angled axial and coronal 5 x 5 mm slices were reconstructed. Total dose length product 1380 mGycm. CTDI vol(s) 53 and 15 mGy. Dose reduction achieved using automated exposure control Comparison: 02/06/2014 Findings: No acute intracranial hemorrhage or edema. No mass effect nor midline shift. Normal mcdonald-white differentiation. Normal size ventricles and extra axial CSF spaces. There is minimal soft tissue swelling about the left orbit. The sinuses are clear. The mastoids are clear. The calvarium is intact. Impression: Minimal left periorbital soft tissue swelling Otherwise negative The CT scanner at [facility] is accredited by the [employer] and the scans are performed using protocols designed to limit radiation exposure to as low as reasonably achievable to attain images of sufficient resolution adequate for diagnostic evaluation.
--- NOTE | 2019-07-21 15:45 | Diagnostic Imaging Report ---
Indications: Trauma, left eye injury/infection Technique: Spiral images obtained through the facial bones. No IV contrast utilized. Multiplanar reconstructions were generated.Total dose length product 1380 mGycm. CTDIvol(s) 53 and 15 mGy. Dose reduction achieved using automated exposure control Comparison: none Findings: There is left periorbital soft tissue swelling noted. The optic globe appears intact. The retroseptal orbits are unremarkable. No acute fractures. No worrisome sinus opacification. There is minimal mucosal disease involving the bilateral maxillary, ethmoid, and sphenoid sinuses. The mastoids are clear. The deep facial soft tissues are unremarkable. There is evidence of prior dental extractions. The existing dentition is grossly intact although visualization is limited due to streak artifact from dental amalgam. Impression: Left periorbital soft tissue swelling. No acute bony trauma. Minimal sinus disease Other findings as noted The CT scanner at [facility] is accredited by the [employer] and the scans are performed using protocols designed to limit radiation exposure to as low as reasonably achievable to attain images of sufficient resolution adequate for diagnostic evaluation.
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
[2019-07-21] MEDS ORDERED: AUGMENTIN 875-1 EAC1 ORAL (15:50)
[2019-07-21] MEDS ORDERED: OFLOXACIN10 ML OP (15:50)
[2019-07-21] MEDS ORDERED: IBUPROFEN600 M1 ORAL (15:50)
[2019-07-21] MEDS ORDERED: TYLENOL325 MG ORAL (16:02)
[2019-07-21 16:10] VITALS: BP 140/89
--- NOTE | 2019-07-21 16:10 | NUR ---
ER DISCHARGE NOTE: Patient is cleared to be discharged per ERMD, pt is aox4, on room air, with stable vital signs. pt was given dc and prescription instructions, pt was able to verbalize understanding, pt is able to ambulate with steady gait. pt took all belongings.
== END 2019-07-21 16:15 | disposition home or self-care (01) ==
LOC: EMR 14:05
DX: L03.213 Periorbital cellulitis (principal); S00.83XA Contusion of other part of head, initial encounter; W20.8XXA Other cause of strike by thrown, projected or falling object, initial encounter; Y92.9 Unspecified place or not applicable; B20 Human immunodeficiency virus [HIV] disease; I25.2 Old myocardial infarction; I10 Essential (primary) hypertension; R50.9 Fever, unspecified
CPT/HCPCS: 70450; 70486; 99284

== ENCOUNTER 2020-04-24 22:10 | Emergency (ER) | payer MEDICARE, MEDICAID ==
[~2020-04-24] VITALS: Ht 172.7 cm; Wt 93.0 kg
[~2020-04-24 22:10] MED LIST changes: +AUGMENTIN 875-1 EAC1 ORAL; +IBUPROFEN600 M1 ORAL; +OFLOXACIN10 ML OP; +TYLENOL325 MG ORAL
[2020-04-24 22:22] VITALS: BP 149/76
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
[2020-04-24] MEDS ORDERED: HYDROcodone/Acetamin 5/325 tab ORAL ONE (22:45)
--- NOTE | 2020-04-24 22:45 | NUR ---
ED Nurse Note: meds given as ordered. will wait for ultrasound to be done.
[2020-04-25] MEDS ORDERED: IBUPROFEN600 M1 ORAL (00:01)
[2020-04-25] MEDS ORDERED: HYDROCODON-ACE1 EA15 ORAL (00:01)
[2020-04-25 00:05] VITALS: BP 142/72
--- NOTE | 2020-04-25 00:05 | NUR ---
ER DISCHARGE NOTE: Patient is cleared to be discharged per ERMD, pt is aox4, on room air, with stable vital signs. pt was given dc and prescription instructions, pt was able to verbalize understanding, pt id band removed without complications. pt is able to ambulate with steady gait. pt took all belongings.
--- NOTE | 2020-04-26 08:01 | Diagnostic Imaging Report ---
EXAM: US Duplex Left Lower Extremity Veins CLINICAL HISTORY: PAIN TECHNIQUE: Real-time duplex ultrasound scan of the left lower extremity veins integrating B-mode two-dimensional vascular structure, Doppler spectral analysis, color flow Doppler imaging and compression. COMPARISON: No relevant prior studies available. FINDINGS: Deep veins: Unremarkable. No DVT in the visualized common femoral, femoral, proximal deep femoral or popliteal veins. The veins demonstrate normal color flow, are normally compressible, with normal phasic flow and/or augmentation response. Superficial veins: Unremarkable. No thrombus in the visualized great saphenous vein. Soft tissues: No acute findings. No popliteal cyst. IMPRESSION: Normal left lower extremity duplex venous ultrasound.
== END 2020-04-25 00:05 | disposition home or self-care (01) ==
LOC: EMR 22:22
DX: S86.912A Strain of unspecified muscle(s) and tendon(s) at lower leg level, left leg, initial encounter (principal); Y04.8XXA Assault by other bodily force, initial encounter; Y92.9 Unspecified place or not applicable; B20 Human immunodeficiency virus [HIV] disease; Z91.013 Allergy to seafood; I10 Essential (primary) hypertension
CPT/HCPCS: 93971; 99284